=== PATIENT | female | born 1985 | race Asian ===

== ENCOUNTER 2017-02-13 17:53 | Inpatient (IN) | payer OTHER ==
[2017-02-13] MEDS ORDERED: DINOPROSTONE 10 MG VAGINAL INSERT.SR PV PRN (17:54)
[2017-02-13] MEDS ORDERED: OXYTOCIN/NORMAL SALINE 1,000 ML IV PRN (17:54)
[2017-02-13] MEDS ORDERED: RINGERS SOLUTION,LACTATED 1,000 ML IV ONE (17:54)
[2017-02-13] MEDS ORDERED: PENICILLIN G POTASSIUM 5,000,000 UNIT in DEXTROSE 5%-WATER 100 ML IV ONE (17:54)
[2017-02-13 18:48] LABS: ABSOLUTE BASOPHILS # (AUTO) 0.1 10^3/uL (0.0-0.2); ABSOLUTE EOSINOPHILS # (AUTO) 0.1 10^3/uL (0.0-0.6); ABSOLUTE MONOCYTES (AUTO) 0.6 10^3/uL (0.1-1.4); ABSOLUTE NEUT (AUTO) 4.8 10^3/uL (1.7-8.2); BASOPHILS % (AUTO) 0.8 % (0-2); EOSINOPHILS % (AUTO) 1.6 % (0-6); HEMATOCRIT 37.6 % (36.0-47.0); HEMOGLOBIN 12.8 g/dL (12.0-15.5); HGB HCT DIFFERENCE 0.8; LYMPHOCYTES % (AUTO) 26.1 % (13-45); MEAN CORPUSCULAR HEMOGLOBIN 29.4 pg (27.0-33.4); MEAN CORPUSCULAR VOLUME 86 fl (80-97); MONOCYTES % (AUTO) 7.5 % (3-13); RED BLOOD COUNT 4.35 10^6/uL (3.72-5.28); RED CELL DISTRIBUTION WIDTH 14.4 % (11.5-14.0); WHITE BLOOD COUNT 7.5 10^3/uL (4.0-10.5)
[2017-02-13] MEDS ORDERED: DINOPROSTONE 10 MG VAGINAL INSERT.SR ONE (19:21)
[2017-02-13] MEDS ORDERED: ACETAMINOPHEN 325 MG TABLET PO PRN (19:58)
--- NOTE | 2017-02-13 20:01 | L&D Flow Sheet ---
LD Flowsheet Datetime Report Generated by CPN: 02/13/2017 20:00 Datetime: 02/13/2017 19:38 Medications Cervical Ripening Agents: Cervidil (Samantha Lattibeaudeir, RN) Datetime: 02/13/2017 19:30 Uterine Activity Monitor Mode: External (Samantha Lattibeaudeir, RN) Frequency (min): x3 (Samantha Lattibeaudeir, RN) Quality: Mild (Samantha Lattibeaudeir, RN) Duration (sec): 90-130 (Samantha Lattibeaudeir, RN) Resting Tone (Palpate): Relaxed (Samantha Lattibeaudeir, RN) Contraction Comments: Pt denies feeling contractions. (Samantha Lattibeaudeir, RN) Assessment A Monitor Mode: External US (Samantha Lattibeaudeir, RN) FHR Baseline Rate : 130 (Samantha Lattibeaudeir, RN) Variability: Moderate 6-25 bpm (Samantha Lattibeaudeir, RN) Accelerations: 15X15 (Samantha Lattibeaudeir, RN) Datetime: 02/13/2017 19:26 I/O Interventions: Up to BR (Samantha Lattibeaudeir, RN) Datetime: 02/13/2017 19:23 Communication Communication Comments: Received report from B. Baidy, RN. Care assumed. (Samantha Lattibeaudeir, RN) Communication Communication Comments: handoff report given to S Lattibeaudeir RN (Josiane Baidy, RN) Datetime: 02/13/2017 19:03 Vital Signs NBP Sys/Trudy/Mean (mmHg): 123 (QS system process) : 77 (QS system process) : 97 (QS system process) Pulse: 72 (QS system process) Datetime: 02/13/2017 19:00 Uterine Activity Monitor Mode: External; Palpation (Josiane Naima, RN) Frequency (min): irregular (Josiane Baidy, RN) Quality: Mild (Josiane Baidy, RN) Duration Criteria: Less than Two 120 Second Contractions (Josiane Baidy, RN) Pattern: Normal: <= 5 Contractions in 10 Minutes (Josiane Baidy, RN) Resting Tone (Palpate): Relaxed (Josiane Baidy, RN) Assessment A Monitor Mode: External US (Josiane Baidy, RN) FHR Baseline Rate : 130 (Josiane Baidy, RN) Variability: Moderate 6-25 bpm (Josiane Baidy, RN) Accelerations: 15X15 (Josiane Baidy, RN) Decelerations: None (Josiane Baidy, RN) Procedures: Consents Signed (Josiane Annady, RN) Datetime: 02/13/2017 18:49 Patient Care IV/Blood Work: IV Started; IV Bolus Started (Josiane Naima, RN) Patient Care Comments: 18g in left forearm (Josiane Annady, RN) Datetime: 02/13/2017 18:29 Procedures: Labs Drawn (Josiane Annady, RN) Datetime: 02/13/2017 18:26 Pain Pain Scale: 0 (Josiane Mcnamara RN) Pain Presence: None/Denies (Josiane Mcnamara RN) Pain Type: N/A (Josiane Mcnamara RN) Vaginal Exam Dilatation (cm): 0.0 (Josiane Mcnamara RN) Effacement (%): 50 (Josiane Mcnamara RN) Station: -1 (Josiane Mcnamara RN) Exam by: Dr Rose (Josiane Mcnamara RN) Membrane Status: Intact (Josiane Mcnamara RN) Vaginal Bleeding: None (Josiane Mcnamara, RN) Maternal Assessment Level of Consciousness: Fully Conscious (Josiane Mcnamara, RN) DTR's/Clonus: DTRs 2+; No Clonus (Josiane Mcnamara, RN) Headache: Denies (Josiane Mcnamara, RN) Breath Sounds, Left: Clear and Equal (Josiane Mcnamara, RN) Breath Sounds, Right: Clear and Equal (Josiane Baidiamante, RN) Nausea/Vomiting: Denies (Josiane Mcnamara, RN) RUQ Epigastric Pain: Denies (Josiane Mcnamara, RN) Patient Position/Activity: Semi-Fowlers (Josiane Mcnamara, RN) Teaching Instructional Method: Verbal; Patient Instructed; Verbalized Understanding (Josiane Mcnamara RN) Plan of Care: Plan of Care Discussed; Induction (Josiane Mcnamara RN) Unit Routine: [place] to Room; Call [place]; Bed; Monitoring (Josiane Mcnamara RN) Labor/Induction: Cervical Ripening; Induction (Josiane Mcnamara RN)
[2017-02-13] MEDS ORDERED: PENICILLIN G POTASSIUM 2,500,000 UNIT in DEXTROSE 5%-WATER 50 ML IV SCH (21:56)
[2017-02-13] MEDS ORDERED: ZOLPIDEM TARTRATE 5 MG TABLET PO SCH (22:00)
[2017-02-14] MEDS ORDERED: ZOLPIDEM TARTRATE 5 MG TABLET ONE (00:01)
[2017-02-14] MEDS: RINGERS SOLUTION,LACTATED 1,000 ML IV PRN ×3 (06:51→21:10)
--- NOTE | 2017-02-14 08:01 | L&D Flow Sheet ---
LD Flowsheet Datetime Report Generated by CPN: 02/14/2017 08:00 Datetime: 02/14/2017 07:03 NBP Sys/Trudy/Mean (mmHg): 112 (QS system process) : 66 (QS system process) : 85 (QS system process) Pulse: 52 (QS system process) Datetime: 02/14/2017 07:00 Monitor Mode: External (Samantha Lattibeaudeir, RN) Frequency (min): 2-3 (Samantha Lattibeaudeir, RN) Quality: Mild/Moderate (Samantha Lattibeaudeir, RN) Duration (sec): 60-150 (Samantha Lattibeaudeir, RN) Monitor Mode: External US (Samantha Lattibeaudeir, RN) FHR Baseline Rate : 120 (Samantha Lattibeaudeir, RN) Variability: Moderate 6-25 bpm (Samantha Lattibeaudeir, RN) Accelerations: 15X15 (Samantha Lattibeaudeir, RN) Datetime: 02/14/2017 06:49 IV/Blood Work: New IV Bag Hung; IV Bag Number @ 2 (Samantha Lattibeaudeir, RN) Datetime: 02/14/2017 06:30 Monitor Mode: External (Samantah Lattibeaudeir, RN) Frequency (min): 1.5-2.5 (Samantha Lattibeaudeir, RN) Quality: Mild/Moderate (Samantha Lattibeaudeir, RN) Duration (sec): 70-130 (Samantha Lattibeaudeir, RN) Resting Tone (Palpate): Relaxed (Samantha Lattibeaudeir, RN) Monitor Mode: External US (Samantha Lattibeaudeir, RN) FHR Baseline Rate : 120 (Samantha Lattibeaudeir, RN) Variability: Minimal - Undetectable to <=5 bpm (Samantha Lattibeaudeir, RN) Accelerations: 10X10 (Samantha Lattibeaudeir, RN) Datetime: 02/14/2017 06:11 NBP Sys/Trudy/Mean (mmHg): 119 (QS system process) : 81 (QS system process) : 95 (QS system process) Pulse: 53 (QS system process) Datetime: 02/14/2017 06:06 I/O Interventions: Up to BR (Samantha Lattibeaudeir, RN) Datetime: 02/14/2017 06:03 NBP Sys/Trudy/Mean (mmHg): 117 (QS system process) : 78 (QS system process) : 92 (QS system process) Pulse: 49 (QS system process) Datetime: 02/14/2017 06:00 Monitor Mode: External (Samantha Lattibeaudeir, RN) Frequency (min): 2-4 (Samantha Lattibeaudeir, RN) Quality: Mild/Moderate (Samantha Lattibeaudeir, RN) Duration (sec): 80-110 (Samantha Lattibeaudeir, RN) Resting Tone (Palpate): Relaxed (Samantha Lattibeaudeir, RN) Monitor Mode: External US (Samantha Lattibeaudeir, RN) FHR Baseline Rate : 120 (Samantha Lattibeaudeir, RN) Variability: Moderate 6-25 bpm (Samantha Lattibeaudeir, RN) Accelerations: 15X15 (Samantha Lattibeaudeir, RN) Decelerations: Early (Samantha Lattibeaudeir, RN) Datetime: 02/14/2017 05:30 Monitor Mode: External (Samantha Lattibeaudeir, RN) Frequency (min): 1.5-6.5 (Samantha Lattibeaudeir, RN) Quality: Mild/Moderate (Samantha Lattibeaudeir, RN) Duration (sec): 60-110 (Samantha Lattibeaudeir, RN) Resting Tone (Palpate): Relaxed (Samantha Lattibeaudeir, RN) Monitor Mode: External US (Samantha Lattibeaudeir, RN) FHR Baseline Rate : 120 (Samantha Lattibeaudeir, RN) Variability: Minimal - Undetectable to <=5 bpm (Samantha Lattibeaudeir, RN) Accelerations: 15X15 (Samantha Lattibeaudeir, RN) Datetime: 02/14/2017 05:04 NBP Sys/Trudy/Mean (mmHg): 119 (QS system process) : 73 (QS system process) : 90 (QS system process) Pulse: 50 (QS system process) Datetime: 02/14/2017 05:00 Monitor Mode: External (Samantha Lattibeaudeir, RN) Frequency (min): 2-5 (Samantha Lattibeaudeir, RN) Quality: Mild/Moderate (Samantha Lattibeaudeir, RN) Duration (sec): 80-130 (Samantha Lattibeaudeir, RN) Resting Tone (Palpate): Relaxed (Samantha Lattibeaudeir, RN) Monitor Mode: External US (Samantha Lattibeaudeir, RN) FHR Baseline Rate : 120 (Samantha Lattibeaudeir, RN) Variability: Moderate 6-25 bpm (Samantha Lattibeaudeir, RN) Accelerations: 15X15 (Samantha Lattibeaudeir, RN) Datetime: 02/14/2017 04:30 Monitor Mode: External (Samantha Lattibeaudeir, RN) Frequency (min): 1.5-5 (Samantha Lattibeaudeir, RN) Quality: Mild/Moderate (Samantha Lattibeaudeir, RN) Duration (sec): 60-160 (Samantha Lattibeaudeir, RN) Resting Tone (Palpate): Relaxed (Samantha Lattibeaudeir, RN) Monitor Mode: External US (Samantha Lattibeaudeir, RN) FHR Baseline Rate : 120 (Samantha Lattibeaudeir, RN) Variability: Minimal - Undetectable to <=5 bpm (Samantha Lattibeaudeir, RN) Accelerations: 15X15 (Samantha Lattibeaudeir, RN) Datetime: 02/14/2017 04:11 NBP Sys/Trudy/Mean (mmHg): 118 (QS system process) : 77 (QS system process) : 93 (QS system process) Pulse: 55 (QS system process) Datetime: 02/14/2017 04:02 I/O Interventions: Up to BR (Samantha Lattibeaudeir, RN) Datetime: 02/14/2017 04:00 Monitor Mode: External (Samantha Lattibeaudeir, RN) Frequency (min): 1-6.5 (Samantha Lattibeaudeir, RN) Quality: Mild/Moderate (Samantha Lattibeaudeir, RN) Duration (sec): 80-140 (Samantha Lattibeaudeir, RN) Resting Tone (Palpate): Relaxed (Samantha Lattibeaudeir, RN) Monitor Mode: External US (Samantha Lattibeaudeir, RN) FHR Baseline Rate : 125 (Samantha Lattibeaudeir, RN) Variability: Moderate 6-25 bpm (Samantha Lattibeaudeir, RN) Accelerations: 15X15 (Samantha Lattibeaudeir, RN) Decelerations: None (Samantha Lattibeaudeir, RN) Datetime: 02/14/2017 03:30 Monitor Mode: External (Samantha Lattibeaudeir, RN) Frequency (min): 1.5-5 (Samantha Lattibeaudeir, RN) Quality: Moderate (Samantha Lattibeaudeir, RN) Duration (sec): 60-160 (Samantha Lattibeaudeir, RN) Resting Tone (Palpate): Relaxed (Samantha Lattibeaudeir, RN) Monitor Mode: External US (Samantha Lattibeaudeir, RN) FHR Baseline Rate : 125 (Samantha Lattibeaudeir, RN) Variability: Moderate 6-25 bpm (Samantha Lattibeaudeir, RN) Accelerations: 15X15 (Samantha Lattibeaudeir, RN) Datetime: 02/14/2017 03:03 NBP Sys/Trudy/Mean (mmHg): 112 (QS system process) : 63 (QS system process) : 82 (QS system process) Pulse: 55 (QS system process) Datetime: 02/14/2017 03:00 Monitor Mode: External (Samantha Lattibeaudeir, RN) Frequency (min): 2-5.5 (Samantha Lattibeaudeir, RN) Quality: Mild/Moderate (Samantha Lattibeaudeir, RN) Duration (sec): 60-180 (Samantha Lattibeaudeir, RN) Resting Tone (Palpate): Relaxed (Samantha Lattibeaudeir, RN) Monitor Mode: External US (Samantha Lattibeaudeir, RN) FHR Baseline Rate : 125 (Samantha Lattibeaudeir, RN) Variability: Moderate 6-25 bpm (Samantha Lattibeaudeir, RN) Accelerations: 15X15 (Samantha Lattibeaudeir, RN) Datetime: 02/14/2017 02:30 Monitor Mode: External (Samantha Lattibeaudeir, RN) Frequency (min): 2.5-4 (Samantha Lattibeaudeir, RN) Quality: Mild/Moderate (Samantha Lattibeaudeir, RN) Duration (sec): 80-140 (Samantha Lattibeaudeir, RN) Resting Tone (Palpate): Relaxed (Samantha Lattibeaudeir, RN) Monitor Mode: External US (Samantha Lattibeaudeir, RN) FHR Baseline Rate : 135 (Samantha Lattibeaudeir, RN) Variability: Moderate 6-25 bpm (Samantha Lattibeaudeir, RN) Accelerations: Prolonged (Samantha Lattibeaudeir, RN) Datetime: 02/14/2017 02:04 NBP Sys/Trudy/Mean (mmHg): 110 (QS system process) : 58 (QS system process) : 78 (QS system process) Pulse: 53 (QS system process) Datetime: 02/14/2017 02:00 Monitor Mode: External (Samantha Lattibeaudeir, RN) Frequency (min): 2-3.5 (Samantha Lattibeaudeir, RN) Quality: Mild/Moderate (Samantha Lattibeaudeir, RN) Duration (sec): 80-120 (Samantha Lattibeaudeir, RN) Resting Tone (Palpate): Relaxed (Samantha Lattibeaudeir, RN) Monitor Mode: External US (Samantha Lattibeaudeir, RN) FHR Baseline Rate : 125 (Samantha Lattibeaudeir, RN) Variability: Moderate 6-25 bpm (Samantha Lattibeaudeir, RN) Accelerations: 15X15 (Samantha Lattibeaudeir, RN) Datetime: 02/14/2017 01:34 I/O Interventions: Up to BR (Samantha Lattibeaudeir, RN) Datetime: 02/14/2017 01:30 Monitor Mode: External (Samantha Lattibeaudeir, RN) Frequency (min): 2.5-4 (Samantha Lattibeaudeir, RN) Quality: Mild (Samantha Lattibeaudeir, RN) Duration (sec): 70-220 (Samantha Lattibeaudeir, RN) Resting Tone (Palpate): Relaxed (Samantha Lattibeaudeir, RN) Monitor Mode: External US (Samantha Lattibeaudeir, RN) FHR Baseline Rate : 125 (Samantha Lattibeaudeir, RN) Variability: Moderate 6-25 bpm (Samantha Lattibeaudeir, RN) Accelerations: 15X15 (Samantha Lattibeaudeir, RN) Datetime: 02/14/2017 01:17 Monitor Interventions for UA: [place] Adjusted (Samantha Lattibeaudeir, RN) Patient Position/Activity: Left Lateral (Samantha Lattibeaudeir, RN) Datetime: 02/14/2017 01:03 NBP Sys/Trudy/Mean (mmHg): 108 (QS system process) : 62 (QS system process) : 81 (QS system process) Pulse: 59 (QS system process) Datetime: 02/14/2017 01:00 Monitor Mode: External; Palpation (Samantha Lattibeaudeir, RN) Quality: Mild (Samantha Lattibeaudeir, RN) Resting Tone (Palpate): Relaxed (Samantha Lattibeaudeir, RN) Contraction Comments: unable to determine contraction pattern. (Samantha Lattibeaudeir, RN) Monitor Mode: External US (Samantha Lattibeaudeir, RN) FHR Baseline Rate : 135 (Samantha Lattibeaudeir, RN) Variability: Moderate 6-25 bpm (Samantha Lattibeaudeir, RN) Accelerations: 15X15 (Samantha Lattibeaudeir, RN) Datetime: 02/14/2017 00:30 Monitor Mode: External (Samantha Lattibeaudeir, RN) Frequency (min): 2.5-3.5 (Samantha Lattibeaudeir, RN) Quality: Mild (Samantha Lattibeaudeir, RN) Duration (sec): 70-120 (Samantha Lattibeaudeir, RN) Resting Tone (Palpate): Relaxed (Samantha Lattibeaudeir, RN) Monitor Mode: External US (Samantha Lattibeaudeir, RN) FHR Baseline Rate : 135 (Samantha Lattibeaudeir, RN) Variability: Moderate 6-25 bpm (Samantha Lattibeaudeir, RN) Accelerations: 15X15 (Samantha Lattibeaudeir, RN) Datetime: 02/14/2017 00:01 Analgesics/Sedatives: Ambien (mg) @ 10 (Samantha Lattibeaudeir, RN) Datetime: 02/14/2017 00:00 Monitor Mode: External (Samantha Lattibeaudeir, RN) Frequency (min): 3-4 (Samantha Lattibeaudeir, RN) Quality: Mild (Samantha Lattibeaudeir, RN) Duration (sec): 80-110 (Samantha Lattibeaudeir, RN) Resting Tone (Palpate): Relaxed (Samantha Lattibeaudeir, RN) Monitor Mode: External US (Samantha Lattibeaudeir, RN) FHR Baseline Rate : 140 (Samantha Lattibeaudeir, RN) Variability: Moderate 6-25 bpm (Samantha Lattibeaudeir, RN) Accelerations: 15X15 (Samantha Lattibeaudeir, RN) Datetime: 02/13/2017 23:52 I/O Interventions: Up to BR (Samantha Lattibeaudeir, RN) Datetime: 02/13/2017 23:33 NBP Sys/Trudy/Mean (mmHg): 123 (QS system process) : 77 (QS system process) : 95 (QS system process) Pulse: 59 (QS system process) Datetime: 02/13/2017 23:30 Monitor Mode: External (Samantha Lattibeaudeir, RN) Frequency (min): 4-12 (Samantha Lattibeaudeir, RN) Quality: Mild (Samantha Lattibeaudeir, RN) Duration (sec): 80-130 (Samantha Lattibeaudeir, RN) Resting Tone (Palpate): Relaxed (Samantha Lattibeaudeir, RN) Monitor Mode: External US (Samantha Lattibeaudeir, RN) FHR Baseline Rate : 140 (Samantha Lattibeaudeir, RN) Variability: Moderate 6-25 bpm (Samantha Lattibeaudeir, RN) Accelerations: Prolonged (Samantha Lattibeaudeir, RN) Datetime: 02/13/2017 23:03 NBP Sys/Trudy/Mean (mmHg): 120 (QS system process) : 77 (QS system process) : 94 (QS system process) Pulse: 60 (QS system process) Datetime: 02/13/2017 23:00 Monitor Mode: External (Samantha Lattibeaudeir, RN) Frequency (min): 2-4 (Samantha Lattibeaudeir, RN) Quality: Mild (Samantha Lattibeaudeir, RN) Duration (sec): 70-110 (Samantha Lattibeaudeir, RN) Resting Tone (Palpate): Relaxed (Samantha Lattibeaudeir, RN) Monitor Mode: External US (Samantha Lattibeaudeir, RN) FHR Baseline Rate : 130 (Samantha Lattibeaudeir, RN) Variability: Moderate 6-25 bpm (Samantha Lattibeaudeir, RN) Accelerations: 15X15 (Samantha Lattibeaudeir, RN) Datetime: 02/13/2017 22:33 NBP Sys/Trudy/Mean (mmHg): 114 (QS system process) : 77 (QS system process) : 92 (QS system process) Pulse: 67 (QS system process) Datetime: 02/13/2017 22:30 Monitor Mode: External (Samantha Lattibeaudeir, RN) Frequency (min): 2-3.5 (Samantha Lattibeaudeir, RN) Quality: Mild (Samantha Lattibeaudeir, RN) Duration (sec): 60-90 (Samantha Lattibeaudeir, RN) Resting Tone (Palpate): Relaxed (Samantha Lattibeaudeir, RN) Monitor Mode: External US (Samantha Lattibeaudeir, RN) FHR Baseline Rate : 130 (Samantha Lattibeaudeir, RN) Variability: Moderate 6-25 bpm (Samantha Lattibeaudeir, RN) Accelerations: 15X15 (Samantha Lattibeaudeir, RN) Datetime: 02/13/2017 22:04 I/O Interventions: Up to BR (Samantha Lattibeaudeir, RN) Datetime: 02/13/2017 22:03 NBP Sys/Trudy/Mean (mmHg): 118 (QS system process) : 75 (QS system process) : 93 (QS system process) Pulse: 61 (QS system process) Datetime: 02/13/2017 22:00 Monitor Mode: External (Samantha Lattibeaudeir, RN) Frequency (min): 4-8 (Samantha Lattibeaudeir, RN) Quality: Mild (Samantha Lattibeaudeir, RN) Duration (sec): 90-140 (Samantha Lattibeaudeir, RN) Resting Tone (Palpate): Relaxed (Samantha Lattibeaudeir, RN) Monitor Mode: External US (Samantha Lattibeaudeir, RN) FHR Baseline Rate : 125 (Samantha Lattibeaudeir, RN) Variability: Minimal - Undetectable to <=5 bpm (Samantha Lattibeaudeir, RN) Accelerations: 15X15 (Samantha Lattibeaudeir, RN) Datetime: 02/13/2017 21:34 NBP Sys/Trudy/Mean (mmHg): 119 (QS system process) : 76 (QS system process) : 92 (QS system process) Pulse: 63 (QS system process) Datetime: 02/13/2017 21:30 Monitor Mode: External (Samantha Lattibeaudeir, RN) Frequency (min): 2.5-8.5 (Samantha Lattibeaudeir, RN) Quality: Mild (Samantha Lattibeaudeir, RN) Duration (sec): 90-110 (Samantha Lattibeaudeir, RN) Resting Tone (Palpate): Relaxed (Samantha Lattibeaudeir, RN) Monitor Mode: External US (Samantha Lattibeaudeir, RN) FHR Baseline Rate : 125 (Samantha Lattibeaudeir, RN) Variability: Moderate 6-25 bpm (Samantha Lattibeaudeir, RN) Accelerations: 15X15 (Samantha Lattibeaudeir, RN) Decelerations: None (Samantha Lattibeaudeir, RN) Datetime: 02/13/2017 21:03 NBP Sys/Trudy/Mean (mmHg): 116 (QS system process) : 77 (QS system process) : 91 (QS system process) Pulse: 65 (QS system process) Datetime: 02/13/2017 21:00 Monitor Mode: External (Samantha Lattibeaudeir, RN) Frequency (min): 5-13 (Samantha Lattibeaudeir, RN) Quality: Mild (Samantha Lattibeaudeir, RN) Duration (sec): 60-130 (Samantha Lattibeaudeir, RN) Resting Tone (Palpate): Relaxed (Samantha Lattibeaudeir, RN) Monitor Mode: External US (Samantha Lattibeaudeir, RN) FHR Baseline Rate : 125 (Samantha Lattibeaudeir, RN) Variability: Moderate 6-25 bpm (Samantha Lattibeaudeir, RN) Accelerations: 15X15 (Samantha Lattibeaudeir, RN) Datetime: 02/13/2017 20:34 NBP Sys/Trudy/Mean (mmHg): 124 (QS system process) : 70 (QS system process) : 92 (QS system process) Pulse: 56 (QS system process) Datetime: 02/13/2017 20:30 Monitor Mode: External (Samantha Lattibeaudeir, RN) Frequency (min): 1-6.5 (Samantha Lattibeaudeir, RN) Quality: Mild (Samantha Lattibeaudeir, RN) Duration (sec): 60-150 (Samantha Lattibeaudeir, RN) Resting Tone (Palpate): Relaxed (Samantha Lattibeaudeir, RN) Monitor Mode: External US (Samantha Lattibeaudeir, RN) FHR Baseline Rate : 130 (Samantha Lattibeaudeir, RN) Variability: Moderate 6-25 bpm (Samantha Lattibeaudeir, RN) Accelerations: 15X15 (Samantha Lattibeaudeir, RN) Decelerations: None (Samantha Lattibeaudeir, RN) Datetime: 02/13/2017 20:03 NBP Sys/Trudy/Mean (mmHg): 117 (QS system process) : 70 (QS system process) : 89 (QS system process) Pulse: 67 (QS system process) Datetime: 02/13/2017 20:00 Monitor Mode: External (Samantha Dong RN) Frequency (min): x3 (Samantha Dong RN) Quality: Mild (Samantha Dong RN) Duration (sec): 60-120 (Samantha Dong RN) Resting Tone (Palpate): Relaxed (Samantha Dong RN) Monitor Mode: External US (Samantha Dong RN) FHR Baseline Rate : 125 (Samantha Dong RN) Variability: Moderate 6-25 bpm (Samantha Dong RN) Accelerations: 15X15 (Samantha Dong RN) Comments: x1 decel after returning from bathroom. (Samantha Dong RN)
[2017-02-14] MEDS ORDERED: MISOPROSTOL 0.1 MG TABLET ONE (10:46)
[2017-02-14] MEDS ORDERED: OXYTOCIN/NORMAL SALINE 20 UNIT/1,000 ML RTUINJ ONE ×2 (14:54→22:32)
[2017-02-14] MEDS ORDERED: PENICILLIN G-K 5 MILLION UNIT VIAL ONE ×2 (15:23→18:56)
[2017-02-14] MEDS ORDERED: BENZOIN/ALOE VERA/STORAX/TOLU TINCTURE 60 ML TP PRN (19:36)
[2017-02-14] MEDS ORDERED: EPHEDRINE SULFATE INJ 50 MG/1 ML AMPULE IV PRN (19:36)
[2017-02-14] MEDS ORDERED: FENTANYL/BUPIVACAINE/NS/PF 100 ML EPI PRN (19:36)
[2017-02-14] MEDS ORDERED: BUPIVACAINE HCL 0.25 % INJ/PF (2.5 MG/1 ML) 30 ML VIAL INFIL ONE (19:36)
[2017-02-14] MEDS ORDERED: FENTANYL CITRATE INJ/PF 100 MCG/2 ML AMPUL ONE (19:37)
[2017-02-14] MEDS ORDERED: PHENYLEPHRINE HCL INJ/PF 10 MG/1 ML SDV ONE (19:37)
[2017-02-14] MEDS ORDERED: FENTANYL/BUPIVACAINE/NS/PF 200 MCG/100 ML RTUINJ EPI ONE (19:37)
[2017-02-14] MEDS ORDERED: BUPIVACAINE HCL 0.25 % INJ/PF (2.5 MG/1 ML) 30 ML VIAL ONE (19:37)
[2017-02-14] MEDS ORDERED: EPHEDRINE SULFATE INJ 50 MG/1 ML AMPULE ONE ×2 (19:37→19:38)
--- NOTE | 2017-02-14 20:01 | L&D Flow Sheet ---
LD Flowsheet Datetime Report Generated by CPN: 02/14/2017 20:00 Datetime: 02/14/2017 19:59 NBP Sys/Trudy/Mean (mmHg): 130 (QS system process) : 86 (QS system process) : 103 (QS system process) Pulse: 66 (QS system process) LaborFlag: Labor (QS system process) Datetime: 02/14/2017 19:57 NBP Sys/Trudy/Mean (mmHg): 145 (QS system process) : 84 (QS system process) : 108 (QS system process) Pulse: 66 (QS system process) LaborFlag: Labor (QS system process) Datetime: 02/14/2017 19:56 NBP Sys/Trudy/Mean (mmHg): 149 (QS system process) : 85 (QS system process) : 109 (QS system process) Pulse: 53 (QS system process) LaborFlag: Labor (QS system process) Datetime: 02/14/2017 19:55 NBP Sys/Trudy/Mean (mmHg): 148 (QS system process) : 78 (QS system process) : 104 (QS system process) Pulse: 64 (QS system process) LaborFlag: Labor (QS system process) Datetime: 02/14/2017 19:49 NBP Sys/Trudy/Mean (mmHg): 141 (QS system process) : 78 (QS system process) : 103 (QS system process) Pulse: 62 (QS system process) LaborFlag: Labor (QS system process) Datetime: 02/14/2017 19:30 Pain Scale: 3 (Danial Mendez RN) Pain Presence: Intermittent (Danial Mendez RN) Pain Type: Contraction (Danial Mendez RN) Pain Location: Abdomen; Back (Danial Mendez RN) Pain Goal: 1 (Danial Mendez RN) Pain Coping: Talking Through Contractions; Breathing Through Contractions (Danial Mendez RN) Level of Consciousness: Fully Conscious (Danial Mendez RN) Headache: Denies (Danial Mendez RN) Nausea/Vomiting: Denies (Danial Mendez RN) RUQ Epigastric Pain: Denies (Danial Mendez RN) Pitocin (milliunit): Pitocin Remains (milliunits) @ (Annotations: 14) (Danial Mendez RN) LaborFlag: Labor (QS system process) Datetime: 02/14/2017 19:22 Communication Comments: Report to Niru Lorenzomaribell FINE, Dasia Anton RNC out. (Brittany Walton RNC) Datetime: 02/14/2017 19:15 Monitor Mode: External; Palpation (FANNIE Hernandez) Frequency (min): 3.5-6 (Brittany Walton RNC) Quality: Mild/Moderate (Brittany Walton RNC) Duration (sec): 60-120 (Brittany Walton RNC) Duration Criteria: Less than Two 120 Second Contractions (Brittany Walton RNC) Pattern: Normal: <= 5 Contractions in 10 Minutes (Brittany Walton RNC) Resting Tone (Palpate): Relaxed (Brittany Walton RNC) Monitor Mode: External US (FANNIE Hernandez) FHR Baseline Rate : 135 (Brittany Walton RNC) Variability: Moderate 6-25 bpm (Brittany Walton RNC) Accelerations: 15X15 (Brittany Walton RNC) Decelerations: None (Brittany Walton RNC) Pitocin (milliunit): Pitocin Remains (milliunits) @ 14 (Brittany Walton RNC) Antibiotics: Penicillin IV (Units) @ 2.5 Million (Brittany Walton RNC) Datetime: 02/14/2017 19:00 Monitor Mode: External; Palpation (Brittany Anton, RNC) Frequency (min): 3-6 (Brittany Anton, RNC) Quality: Moderate (Brittany Anton, RNC) Duration (sec): 60-120 (Brittany Anton, RNC) Duration Criteria: Less than Two 120 Second Contractions (Brittany Anton, RNC) Pattern: Normal: <= 5 Contractions in 10 Minutes (Brittany Anton, RNC) Resting Tone (Palpate): Relaxed (Brittany Anton, RNC) Monitor Mode: External US (Brittany Anton, RNC) FHR Baseline Rate : 130 (Brittany Anton, RNC) Variability: Moderate 6-25 bpm (Brittany Anton, RNC) Accelerations: 15X15 (Brittany Anton, RNC) Decelerations: None (Brittany Anton, RNC) Pitocin (milliunit): Pitocin Remains (milliunits) @ 14 (Brittany Anton, RNC) Datetime: 02/14/2017 18:49 NBP Sys/Trudy/Mean (mmHg): 122 (QS system process) : 89 (QS system process) : 102 (QS system process) Pulse: 65 (QS system process) LaborFlag: Labor (QS system process) Datetime: 02/14/2017 18:45 Monitor Mode: External; Palpation (Brittany Anton, RNC) Frequency (min): 2-4 (Brittany Anton, RNC) Quality: Mild/Moderate (Brittany Anton, RNC) Duration (sec): 60-120 (Brittany Anton, RNC) Duration Criteria: Less than Two 120 Second Contractions (Brittany Anton, RNC) Pattern: Normal: <= 5 Contractions in 10 Minutes (Brittany Anton, RNC) Resting Tone (Palpate): Relaxed (Brittany Anton, RNC) Monitor Mode: External US (Brittany Anton, RNC) FHR Baseline Rate : 135 (Brittany Anton, RNC) Variability: Moderate 6-25 bpm (Brittany Anton, RNC) Accelerations: 15X15 (Brittany Anton, RNC) Decelerations: None (Brittany Anton, RNC) Datetime: 02/14/2017 18:30 Monitor Mode: External; Palpation (Brittany Anton, RNC) Frequency (min): 2.5-4 (Brittany Anton, RNC) Quality: Mild/Moderate (Brittany Anton, RNC) Duration (sec): 60-120 (Brittany Anton, RNC) Duration Criteria: Less than Two 120 Second Contractions (Brittany Anton, RNC) Pattern: Normal: <= 5 Contractions in 10 Minutes (Brittany Anton, RNC) Resting Tone (Palpate): Relaxed (Brittany Anton, RNC) Monitor Mode: External US (Brittany Anton, RNC) FHR Baseline Rate : 135 (Brittany Anton, RNC) Variability: Moderate 6-25 bpm (Brittany Anton, RNC) Accelerations: 15X15 (Brittany Anton, RNC) Decelerations: None (Brittany Anton, RNC) Datetime: 02/14/2017 18:18 NBP Sys/Trudy/Mean (mmHg): 122 (QS system process) : 83 (QS system process) : 99 (QS system process) Pulse: 54 (QS system process) LaborFlag: Labor (QS system process) Datetime: 02/14/2017 18:15 Monitor Mode: External; Palpation (Brittany Anton, RNC) Frequency (min): 2.5-4 (Brittany Anton, RNC) Quality: Mild/Moderate (Brittany Anton, RNC) Duration (sec): 60-120 (Brittany Anton, RNC) Duration Criteria: Less than Two 120 Second Contractions (Brittany Anton, RNC) Pattern: Normal: <= 5 Contractions in 10 Minutes (Brittany Anton, RNC) Resting Tone (Palpate): Relaxed (Brittany Anton, RNC) Monitor Mode: External US (Brittany Anton, RNC) FHR Baseline Rate : 135 (Brittany Anton, RNC) Variability: Moderate 6-25 bpm (Brittany Anton, RNC) Accelerations: None (Brittany Anton, RNC) Decelerations: None (Brittany Anton, RNC) Datetime: 02/14/2017 18:00 Monitor Mode: External; Palpation (Brittany Anton, RNC) Frequency (min): 2.5-4 (Brittany Anton, RNC) Quality: Mild/Moderate (Brittany Anton, RNC) Duration (sec): 60-120 (Brittany Anton, RNC) Duration Criteria: Less than Two 120 Second Contractions (Brittany Anton, RNC) Pattern: Normal: <= 5 Contractions in 10 Minutes (Brittany Anton, RNC) Resting Tone (Palpate): Relaxed (Brittany Anton, RNC) Monitor Mode: External US (Brittany Anton, RNC) FHR Baseline Rate : 135 (Brittany Anton, RNC) Variability: Moderate 6-25 bpm (Brittany Walton, RNC) Accelerations: None (Brittany Walton, RNC) Decelerations: None (Brittany Walton, RNC) Pitocin (milliunit): Pitocin Remains (milliunits) @ 14 (Brittany Walton, RNC) Datetime: 02/14/2017 17:50 NBP Sys/Trudy/Mean (mmHg): 114 (QS system process) : 78 (QS system process) : 91 (QS system process) Pulse: 55 (QS system process) LaborFlag: Labor (QS system process) Datetime: 02/14/2017 17:45 Monitor Mode: External; Palpation (Brittany Walton, RNC) Frequency (min): 3-5 (Brittany Walton, RNC) Quality: Mild/Moderate (Brittany Walton, RNC) Duration (sec): 60-120 (Brittany Walton, RNC) Duration Criteria: Less than Two 120 Second Contractions (Brittany Walton, RNC) Pattern: Normal: <= 5 Contractions in 10 Minutes (Brittany Anton, RNC) Resting Tone (Palpate): Relaxed (Brittany Anton, RNC) Monitor Mode: External US (Brittany Anton, RNC) FHR Baseline Rate : 130 (Brittany Anton, RNC) Variability: Moderate 6-25 bpm (Brittany Anton, RNC) Accelerations: 15X15 (Brittany Anton, RNC) Decelerations: None (Brittany Anton, RNC) Datetime: 02/14/2017 17:30 Monitor Mode: External; Palpation (Brittany Anton, RNC) Frequency (min): 2.5-5 (Brittany Anton, RNC) Quality: Mild/Moderate (Brittany Anton, RNC) Duration (sec): 60-120 (Brittany Anton, RNC) Duration Criteria: Less than Two 120 Second Contractions (Brittany Anton, RNC) Pattern: Normal: <= 5 Contractions in 10 Minutes (Brittany Anton, RNC) Resting Tone (Palpate): Relaxed (Brittany Anton, RNC) Monitor Mode: External US (Brittany Anton, RNC) FHR Baseline Rate : 130 (Brittany Anton, RNC) Variability: Moderate 6-25 bpm (Brittany Anton, RNC) Accelerations: None (Brittany Anton, RNC) Decelerations: None (Brittany Anton, RNC) Datetime: 02/14/2017 17:20 NBP Sys/Trudy/Mean (mmHg): 122 (QS system process) : 78 (QS system process) : 96 (QS system process) Pulse: 58 (QS system process) LaborFlag: Labor (QS system process) Datetime: 02/14/2017 17:15 Monitor Mode: External; Palpation (Brittany Walton, RNC) Frequency (min): 1.5-3 (Brittany Walton, RNC) Quality: Mild/Moderate (Brittany Walton, RNC) Duration (sec): 60-120 (Brittany Walton, RNC) Duration Criteria: Less than Two 120 Second Contractions (Brittany Walton, RNC) Pattern: Normal: <= 5 Contractions in 10 Minutes (Brittany Walton, RNC) Resting Tone (Palpate): Relaxed (Brittany Walton, RNC) Monitor Mode: External US (Brittany Walton, RNC) FHR Baseline Rate : 135 (Brittany Walton, RNC) Variability: Moderate 6-25 bpm (Brittany Walton, RNC) Accelerations: 15X15 (Brittany Walton, RNC) Decelerations: None (Brittany Walton, RNC) Pitocin (milliunit): Pitocin Increased to (milliunits) @ 14 (Brittnay Walton RNC) Datetime: 02/14/2017 17:00 Monitor Mode: External; Palpation (Brittany Anton, RNC) Frequency (min): 1.5-2 (Brittany Anton, RNC) Quality: Mild (Brittany Anton, RNC) Duration (sec): 50-90 (Brittany Anton, RNC) Duration Criteria: Less than Two 120 Second Contractions (Brittany Anton, RNC) Pattern: Normal: <= 5 Contractions in 10 Minutes (Brittany Anton, RNC) Resting Tone (Palpate): Relaxed (Brittany Anton, RNC) Monitor Mode: External US (Brittany Anton, RNC) FHR Baseline Rate : 135 (Brittany Anton, RNC) Variability: Moderate 6-25 bpm (Brittany Anton, RNC) Accelerations: 15X15 (Brittany Anton, RNC) Decelerations: None (Brittany Anton, RNC) Datetime: 02/14/2017 16:48 NBP Sys/Trudy/Mean (mmHg): 115 (QS system process) : 78 (QS system process) : 92 (QS system process) Pulse: 68 (QS system process) LaborFlag: Labor (QS system process) Datetime: 02/14/2017 16:45 Monitor Mode: External; Palpation (Brittany Anton, RNC) Frequency (min): 1.5-2 (Brittany Anton, RNC) Quality: Mild (Brittany Anton, RNC) Duration (sec): 60-90 (Brittany Anton, RNC) Duration Criteria: Less than Two 120 Second Contractions (Brittany Anton, RNC) Pattern: Normal: <= 5 Contractions in 10 Minutes (Brittany Anton, RNC) Resting Tone (Palpate): Relaxed (Brittany Anton, RNC) Monitor Mode: External US (Brittany Anton, RNC) FHR Baseline Rate : 140 (Brittany Anton, RNC) Variability: Moderate 6-25 bpm (Brittany Anton, RNC) Accelerations: 15X15 (Brittany Anton, RNC) Decelerations: None (Brittany Anton, RNC) Pitocin (milliunit): Pitocin Increased to (milliunits) @ 10 (Brittany Anton, RNC) Datetime: 02/14/2017 16:30 Monitor Mode: External; Palpation (Brittany Anton, RNC) Frequency (min): 3-5 (Brittany Anton, RNC) Quality: Mild (Brittany Anton, RNC) Duration (sec): 60-90 (Brittany Anton, RNC) Duration Criteria: Less than Two 120 Second Contractions (Brittany Anton, RNC) Pattern: Normal: <= 5 Contractions in 10 Minutes (Brittany Anton, RNC) Resting Tone (Palpate): Relaxed (Brittany Anton, RNC) Monitor Mode: External US (Brittany Anton, RNC) FHR Baseline Rate : 135 (Brittany Anton, RNC) Variability: Moderate 6-25 bpm (Brittany Anton, RNC) Accelerations: 15X15 (Brittany Anton, RNC) Decelerations: None (Brittany Anton, RNC) Datetime: 02/14/2017 16:19 NBP Sys/Trudy/Mean (mmHg): 115 (QS system process) : 76 (QS system process) : 90 (QS system process) Pulse: 63 (QS system process) LaborFlag: Labor (QS system process) Datetime: 02/14/2017 16:15 Monitor Mode: External; Palpation (Brittany Anton, RNC) Frequency (min): 3-5 (Brittany Anton, RNC) Quality: Mild (Brittany Anton, RNC) Duration (sec): 60-90 (Brittany Anton, RNC) Duration Criteria: Less than Two 120 Second Contractions (Brittany Anton, RNC) Pattern: Normal: <= 5 Contractions in 10 Minutes (Brittany Antno, RNC) Resting Tone (Palpate): Relaxed (Brittany Anton, RNC) Monitor Mode: External US (Brittany Anton, RNC) FHR Baseline Rate : 135 (Brittany Anton, RNC) Variability: Moderate 6-25 bpm (Brittany Anton, RNC) Accelerations: 15X15 (Brittany Anton, RNC) Pitocin (milliunit): Pitocin Increased to (milliunits) @ 8 (Brittany Anton, RNC) Datetime: 02/14/2017 16:00 Monitor Mode: External; Palpation (Brittany Anton, RNC) Frequency (min): 3-5 (Brittany Anton, RNC) Quality: Mild/Moderate (Brittany Anton, RNC) Duration (sec): 60-120 (Brittany Anton, RNC) Duration Criteria: Less than Two 120 Second Contractions (Brittany Anton, RNC) Pattern: Normal: <= 5 Contractions in 10 Minutes (Brittany Anton, RNC) Resting Tone (Palpate): Relaxed (Brittany Anton, RNC) Monitor Mode: External US (Brittany Walton, RNC) FHR Baseline Rate : 135 (Brittany Walton, RNC) Variability: Moderate 6-25 bpm (Brittany Anton, RNC) Accelerations: 15X15 (Brittany Anton, RNC) Decelerations: None (Brittany Walton, RNC) Datetime: 02/14/2017 15:48 NBP Sys/Trudy/Mean (mmHg): 120 (QS system process) : 77 (QS system process) : 93 (QS system process) Pulse: 66 (QS system process) LaborFlag: Labor (QS system process) Datetime: 02/14/2017 15:45 Monitor Mode: External; Palpation (Brittany Walton, RNC) Frequency (min): 3-5 (Brittany Anton, RNC) Quality: Mild/Moderate (Brittany Anton, RNC) Duration (sec): 60-120 (Brittany Anton, RNC) Duration Criteria: Less than Two 120 Second Contractions (Brittany Walton, RNC) Pattern: Normal: <= 5 Contractions in 10 Minutes (Brittanygreg Walton, RNC) Resting Tone (Palpate): Relaxed (Brittany Walton, RNC) Monitor Mode: External US (Brittany Walton, RNC) FHR Baseline Rate : 135 (Brittany Walton, RNC) Variability: Moderate 6-25 bpm (Brittany Walton, RNC) Accelerations: 15X15 (Brittanygreg Walton, RNC) Decelerations: None (Brittany Walton, RNC) Pitocin (milliunit): Pitocin Increased to (milliunits) @ 6 (Brittany Walton, RNC) Datetime: 02/14/2017 15:30 Monitor Mode: External; Palpation (Brittany Walton, RNC) Frequency (min): 4-6 (Brittany Walton, RNC) Quality: Mild/Moderate (Brittany Walton, RNC) Duration (sec): 60-120 (Brittany Walton, RNC) Duration Criteria: Less than Two 120 Second Contractions (Brittany Walton, RNC) Pattern: Normal: <= 5 Contractions in 10 Minutes (Brittany Walton, RNC) Resting Tone (Palpate): Relaxed (Brittany Walton, RNC) Monitor Mode: External US (Brittany Walton, RNC) FHR Baseline Rate : 130 (Brittany Walton, RNC) Variability: Moderate 6-25 bpm (Brittany Anton, RNC) Accelerations: 15X15 (Brittanygreg Walton, RNC) Decelerations: None (Brittany Walton, RNC) Pitocin (milliunit): Pitocin Increased to (milliunits) @ 4 (Brittany Walton, RNC) Datetime: 02/14/2017 15:18 NBP Sys/Trudy/Mean (mmHg): 114 (QS system process) : 81 (QS system process) : 95 (QS system process) Pulse: 62 (QS system process) LaborFlag: Labor (QS system process) Datetime: 02/14/2017 15:15 Pitocin (milliunit): Pitocin Started (milliunits) @ 2; Pitocin 20 Units in 1000ml NS (Brittany Walton [facility]) Antibiotics: Start Antibiotics; Penicillin IV (Units) @ 5 Million (Brittany Walton [facility]) Datetime: 02/14/2017 15:00 Monitor Mode: External (Brittany Anton, RNC) Frequency (min): 3-7 (Brittany Anton, RNC) Quality: Mild (Brittany Anton, RNC) Duration (sec): 60-90 (Brittany Anton, RNC) Duration Criteria: Less than Two 120 Second Contractions (Brittany Anton, RNC) Pattern: Normal: <= 5 Contractions in 10 Minutes (Brittany Anton, RNC) Resting Tone (Palpate): Relaxed (Brittany Anton, RNC) Monitor Mode: External US (Brittany Anton, RNC) FHR Baseline Rate : 135 (Brittany Anton, RNC) Variability: Moderate 6-25 bpm (Brittany Anton, RNC) Accelerations: 15X15 (Brittany Anton, RNC) Decelerations: None (Brittany Anton, RNC) Datetime: 02/14/2017 14:30 Monitor Mode: External; Palpation (Brittany Anton, RNC) Frequency (min): 4-7 (Brittany Anton, RNC) Quality: Mild/Moderate (Brittany Anton, RNC) Duration (sec): 60-120 (Brittany Anton, RNC) Duration Criteria: Less than Two 120 Second Contractions (Brittany Anton, RNC) Pattern: Normal: <= 5 Contractions in 10 Minutes (Brittany Anton, RNC) Resting Tone (Palpate): Relaxed (Brittany Anton, RNC) Monitor Mode: External US (Brittany Anton, RNC) FHR Baseline Rate : 125 (Brittany Anton, RNC) Variability: Moderate 6-25 bpm (Brittany Anton, RNC) Accelerations: 15X15 (Brittany Anton, RNC) Decelerations: None (Brittany Anton, RNC) Datetime: 02/14/2017 14:00 Monitor Mode: External; Palpation (Brittany Anton, RNC) Frequency (min): 3-5 (Brittany Anton, RNC) Quality: Mild (Brittany Anton, RNC) Duration (sec): 60-90 (Brittany Anton, RNC) Duration Criteria: Less than Two 120 Second Contractions (Brittany Anton, RNC) Pattern: Normal: <= 5 Contractions in 10 Minutes (Brittany Anton, RNC) Resting Tone (Palpate): Relaxed (Brittany Anton, RNC) Monitor Mode: External US (Brittany Anton, RNC) FHR Baseline Rate : 135 (Brittany Anton, RNC) Variability: Moderate 6-25 bpm (Brittany Anton, RNC) Accelerations: 15X15 (Brittany Anton, RNC) Decelerations: None (Brittany Anton, RNC) Datetime: 02/14/2017 13:30 Monitor Mode: External; Palpation (Brittany Anton, RNC) Frequency (min): 3-5 (Brittany Anton, RNC) Quality: Mild (Brittany Anton, RNC) Duration (sec): 60-120 (Brittany Anton, RNC) Duration Criteria: Less than Two 120 Second Contractions (Brittany Anton, RNC) Pattern: Normal: <= 5 Contractions in 10 Minutes (Brittany Anton, RNC) Resting Tone (Palpate): Relaxed (Brittany Anton, RNC) Monitor Mode: External US (Brittany Anton, RNC) FHR Baseline Rate : 125 (Brittany Anton, RNC) Variability: Moderate 6-25 bpm (Brittany Anton, RNC) Accelerations: 15X15 (Brittany Anton, RNC) Decelerations: None (Brittany Anton, RNC) Datetime: 02/14/2017 13:00 Monitor Mode: External; Palpation (Brittany Anton, RNC) Frequency (min): 3-5 (Brittany Anton, RNC) Quality: Mild (Brittany Anton, RNC) Duration (sec): 60-90 (Brittany Anton, RNC) Duration Criteria: Less than Two 120 Second Contractions (Brittany Anton, RNC) Pattern: Normal: <= 5 Contractions in 10 Minutes (Brittany Anton, RNC) Resting Tone (Palpate): Relaxed (Brittany Anton, RNC) Monitor Mode: External US (Brittany Anton, RNC) FHR Baseline Rate : 125 (Brittany Anton, RNC) Variability: Moderate 6-25 bpm (Brittany Anton, RNC) Accelerations: 15X15 (Brittany Anton, RNC) Decelerations: None (Brittany Anton, RNC) Datetime: 02/14/2017 12:30 Monitor Mode: External; Palpation (Brittany Anton, RNC) Frequency (min): 3-5 (Brittany Anton, RNC) Quality: Mild (Brittany Anton, RNC) Duration (sec): 60-90 (Brittany Anton, RNC) Duration Criteria: Less than Two 120 Second Contractions (Brittany Anton, RNC) Pattern: Normal: <= 5 Contractions in 10 Minutes (Brittany Anton, RNC) Resting Tone (Palpate): Relaxed (Brittany Anton, RNC) Monitor Mode: External US (Brittany Anton, RNC) FHR Baseline Rate : 120 (Brittany Anton, RNC) Variability: Moderate 6-25 bpm (Brittany Anton, RNC) Accelerations: 15X15 (Brittany Anton, RNC) Decelerations: None (Brittany Anton, RNC) Datetime: 02/14/2017 12:03 Patient Care Comments: Pt back to bed (Brittany Anton, RNC) Datetime: 02/14/2017 12:00 Monitor Mode: External; Palpation (Brittany Anton, RNC) Frequency (min): 5-6 (Brittany Anton, RNC) Quality: Mild (Brittany Anton, RNC) Duration (sec): 60-90 (Brittany Anton, RNC) Duration Criteria: Less than Two 120 Second Contractions (Brittany Anton, RNC) Pattern: Normal: <= 5 Contractions in 10 Minutes (Brittany Anton, RNC) Resting Tone (Palpate): Relaxed (Brittany Anton, RNC) Monitor Mode: External US (Brittany Anton, RNC) FHR Baseline Rate : 135 (Brittany Anton, RNC) Variability: Moderate 6-25 bpm (Brittany Anton, RNC) Accelerations: 15X15 (Brittany Anton, RNC) Decelerations: None (Brittany Anton, RNC) Datetime: 02/14/2017 11:59 I/O Interventions: Up to BR (Brittany Anton, RNC) Datetime: 02/14/2017 11:30 Monitor Mode: External; Palpation (Brittany Anton, RNC) Frequency (min): 3-5 (Brittany Anton, RNC) Quality: Mild/Moderate (Brittany Anton, RNC) Duration (sec): 60-120 (Brittany Anton, RNC) Duration Criteria: Less than Two 120 Second Contractions (Brittany Anton, RNC) Pattern: Normal: <= 5 Contractions in 10 Minutes (Brittany Anton, RNC) Resting Tone (Palpate): Relaxed (Brittany Anton, RNC) Monitor Mode: External US (Brittany Anton, RNC) FHR Baseline Rate : 135 (Brittany Anton, RNC) Variability: Moderate 6-25 bpm (Brittany Anton, RNC) Accelerations: 15X15 (Brittany Anton, RNC) Decelerations: None (Brittany Anton, RNC) Datetime: 02/14/2017 11:00 Monitor Mode: External; Palpation (Brittany Anton, RNC) Frequency (min): 3-5 (Brittany Walton, RNC) Quality: Mild (Brittany Walton, RNC) Duration (sec): 60-90 (Brittanygreg Walton, RNC) Duration Criteria: Less than Two 120 Second Contractions (Brittany Walton, RNC) Pattern: Normal: <= 5 Contractions in 10 Minutes (Brittany Walton, RNC) Resting Tone (Palpate): Relaxed (Brittany Walton, RNC) Monitor Mode: External US (Brittany Walton, RNC) FHR Baseline Rate : 130 (Brittany Anton, RNC) Variability: Moderate 6-25 bpm (Brittany Anton, RNC) Accelerations: 15X15 (Brittany Walton, RNC) Decelerations: None (Brittany Walton, RNC) Cervical Ripening Agents: Cytotec @ 25 mcg PV (Brittany Walton, RNC) Datetime: 02/14/2017 10:30 Monitor Mode: External; Palpation (Brittany Walton, RNC) Frequency (min): 3-6 (Brittany Walton, RNC) Quality: Mild (Brittany Walton, RNC) Duration (sec): 60-120 (Brittanygreg Walton, RNC) Duration Criteria: Less than Two 120 Second Contractions (Brittany Walton, RNC) Pattern: Normal: <= 5 Contractions in 10 Minutes (Brittanygreg Walton, RNC) Resting Tone (Palpate): Relaxed (Brittany Walton, RNC) Monitor Mode: External US (Brittany Walton, RNC) FHR Baseline Rate : 135 (Brittany Anton, RNC) Variability: Moderate 6-25 bpm (Brittanygreg Walton, RNC) Accelerations: 15X15 (Brittany Anton, RNC) Decelerations: None (Brittany Anton, RNC) Datetime: 02/14/2017 10:00 Monitor Mode: External; Palpation (Brittany Anton, RNC) Frequency (min): 3-7 (Brittany Anton, RNC) Quality: Mild (Brittany Anton, RNC) Duration (sec): 60-120 (Brittany Anton, RNC) Duration Criteria: Less than Two 120 Second Contractions (Brittany Anton, RNC) Pattern: Normal: <= 5 Contractions in 10 Minutes (Brittany Anton, RNC) Resting Tone (Palpate): Relaxed (Brittany Anton, RNC) Monitor Mode: External US (Brittany Anton, RNC) FHR Baseline Rate : 135 (Brittany Anton, RNC) Variability: Moderate 6-25 bpm (Brittany Anton, RNC) Accelerations: 15X15 (Brittany Anton, RNC) Decelerations: None (Brittany Anton, RNC) Datetime: 02/14/2017 09:30 Monitor Mode: External; Palpation (Brittany Anton, RNC) Frequency (min): 2-4 (Brittany Anton, RNC) Quality: Mild (Brittany Anton, RNC) Duration (sec): 60-90 (Brittany Anton, RNC) Duration Criteria: Less than Two 120 Second Contractions (Brittany Anton, RNC) Pattern: Normal: <= 5 Contractions in 10 Minutes (Brittany Anton, RNC) Resting Tone (Palpate): Relaxed (Brittany Anton, RNC) Monitor Mode: External US (Brittany Anton, RNC) FHR Baseline Rate : 125 (Brittany Anton, RNC) Variability: Moderate 6-25 bpm (Brittany Anton, RNC) Accelerations: 15X15 (Brittany Anton, RNC) Decelerations: None (Brittany Anton, RNC) Datetime: 02/14/2017 09:18 Dilatation (cm): 1.0 (Brittany Anton, RNC) Effacement (%): 50 (Brittanygreg Walton, RNC) Station: -1 (Brittanygreg Walton, RNC) Exam by: Dasia Walton RNC (Brittany Anton, RNC) Datetime: 02/14/2017 09:14 Comments: Monitors applied to abdomen. (Brittany Walton, RNC)
--- NOTE | 2017-02-14 20:02 | L&D Flow Sheet ---
LD Flowsheet Datetime Report Generated by CPN: 02/14/2017 20:00 Datetime: 02/14/2017 19:59 NBP Sys/Trudy/Mean (mmHg): 130 (QS system process) : 86 (QS system process) : 103 (QS system process) Pulse: 66 (QS system process) Datetime: 02/14/2017 19:57 NBP Sys/Trudy/Mean (mmHg): 145 (QS system process) : 84 (QS system process) : 108 (QS system process) Pulse: 66 (QS system process) LaborFlag: Labor (QS system process) Datetime: 02/14/2017 19:56 NBP Sys/Trudy/Mean (mmHg): 149 (QS system process) : 85 (QS system process) : 109 (QS system process) Pulse: 53 (QS system process) LaborFlag: Labor (QS system process) Datetime: 02/14/2017 19:55 NBP Sys/Trudy/Mean (mmHg): 148 (QS system process) : 78 (QS system process) : 104 (QS system process) Pulse: 64 (QS system process) LaborFlag: Labor (QS system process) Datetime: 02/14/2017 19:49 NBP Sys/Trudy/Mean (mmHg): 141 (QS system process) : 78 (QS system process) : 103 (QS system process) Pulse: 62 (QS system process) LaborFlag: Labor (QS system process) Datetime: 02/14/2017 19:30 Pain Scale: 3 (Danial Mendez RN) Pain Presence: Intermittent (Danial Mendez RN) Pain Type: Contraction (Danial Mendez RN) Pain Location: Abdomen; Back (Danial Mendez RN) Pain Goal: 1 (Danial Mendez RN) Pain Coping: Talking Through Contractions; Breathing Through Contractions (Danial Mendez RN) Level of Consciousness: Fully Conscious (Danial Mendez RN) Headache: Denies (Danial Mendez RN) Nausea/Vomiting: Denies (Danial Mendez RN) RUQ Epigastric Pain: Denies (Danial Mendez RN) Pitocin (milliunit): Pitocin Remains (milliunits) @ (Annotations: 14) (Danial Mendez RN) LaborFlag: Labor (QS system process) Datetime: 02/14/2017 19:22 Communication Comments: Report to S Letitia RN, Dasia Walton RNC out. (Brittany Walton RNC) Datetime: 02/14/2017 19:15 Monitor Mode: External; Palpation (FANNIE Hernandez) Frequency (min): 3.5-6 (Brittany Walton RNC) Quality: Mild/Moderate (Brittany Walton, RNC) Duration (sec): 60-120 (Brittany Walton, RNC) Duration Criteria: Less than Two 120 Second Contractions (Brittany Walton RNC) Pattern: Normal: <= 5 Contractions in 10 Minutes (Brittany Walton RNC) Resting Tone (Palpate): Relaxed (Brittany Walton, RNC) Monitor Mode: External US (Brittany Walton RNC) FHR Baseline Rate : 135 (Brittany Walton RNC) Variability: Moderate 6-25 bpm (Brittany Walton, RNC) Accelerations: 15X15 (Brittany Walton, RNC) Decelerations: None (Brittany Walton, RNC) Pitocin (milliunit): Pitocin Remains (milliunits) @ 14 (Brittany Walton RNC) Antibiotics: Penicillin IV (Units) @ 2.5 Million (Brittany Walton, RNC) Datetime: 02/14/2017 19:00 Monitor Mode: External; Palpation (Brittany Anton, RNC) Frequency (min): 3-6 (Brittany Anton, RNC) Quality: Moderate (Brittany Anton, RNC) Duration (sec): 60-120 (Brittany Anton, RNC) Duration Criteria: Less than Two 120 Second Contractions (Brittany Anton, RNC) Pattern: Normal: <= 5 Contractions in 10 Minutes (Brittany Anton, RNC) Resting Tone (Palpate): Relaxed (Brittany Anton, RNC) Monitor Mode: External US (Brittany Anton, RNC) FHR Baseline Rate : 130 (Brittany Anton, RNC) Variability: Moderate 6-25 bpm (Brittany Anton, RNC) Accelerations: 15X15 (Brittany Anton, RNC) Decelerations: None (Brittany Anton, RNC) Pitocin (milliunit): Pitocin Remains (milliunits) @ 14 (Brittany Anton, RNC) Datetime: 02/14/2017 18:49 NBP Sys/Trudy/Mean (mmHg): 122 (QS system process) : 89 (QS system process) : 102 (QS system process) Pulse: 65 (QS system process) LaborFlag: Labor (QS system process) Datetime: 02/14/2017 18:45 Monitor Mode: External; Palpation (Brittany Anton, RNC) Frequency (min): 2-4 (Brittany Anton, RNC) Quality: Mild/Moderate (Brittany Anton, RNC) Duration (sec): 60-120 (Brittany Anton, RNC) Duration Criteria: Less than Two 120 Second Contractions (Brittany Anton, RNC) Pattern: Normal: <= 5 Contractions in 10 Minutes (Brittany Anton, RNC) Resting Tone (Palpate): Relaxed (Brittany Anton, RNC) Monitor Mode: External US (Brittany Anton, RNC) FHR Baseline Rate : 135 (Brittany Anton, RNC) Variability: Moderate 6-25 bpm (Brittany Anton, RNC) Accelerations: 15X15 (Brittany Anton, RNC) Decelerations: None (Brittany Anton, RNC) Datetime: 02/14/2017 18:30 Monitor Mode: External; Palpation (Brittany Anton, RNC) Frequency (min): 2.5-4 (Brittany Anton, RNC) Quality: Mild/Moderate (Brittany Anton, RNC) Duration (sec): 60-120 (Brittany Anton, RNC) Duration Criteria: Less than Two 120 Second Contractions (Brittany Anton, RNC) Pattern: Normal: <= 5 Contractions in 10 Minutes (Brittany Anton, RNC) Resting Tone (Palpate): Relaxed (Brittany Anton, RNC) Monitor Mode: External US (Brittany Anton, RNC) FHR Baseline Rate : 135 (Brittany Anton, RNC) Variability: Moderate 6-25 bpm (Brittany Anton, RNC) Accelerations: 15X15 (Brittany Anton, RNC) Decelerations: None (Brittany Anton, RNC) Datetime: 02/14/2017 18:18 NBP Sys/Trudy/Mean (mmHg): 122 (QS system process) : 83 (QS system process) : 99 (QS system process) Pulse: 54 (QS system process) LaborFlag: Labor (QS system process) Datetime: 02/14/2017 18:15 Monitor Mode: External; Palpation (Brittany Anton, RNC) Frequency (min): 2.5-4 (Brittany Anton, RNC) Quality: Mild/Moderate (Brittany Anton, RNC) Duration (sec): 60-120 (Brittany Anton, RNC) Duration Criteria: Less than Two 120 Second Contractions (Brittany Anton, RNC) Pattern: Normal: <= 5 Contractions in 10 Minutes (Brittany Anton, RNC) Resting Tone (Palpate): Relaxed (Brittany Anton, RNC) Monitor Mode: External US (Brittany Anton, RNC) FHR Baseline Rate : 135 (Brittany Anton, RNC) Variability: Moderate 6-25 bpm (Brittany Anton, RNC) Accelerations: None (Brittany Anton, RNC) Decelerations: None (Brittany Anton, RNC) Datetime: 02/14/2017 18:00 Monitor Mode: External; Palpation (Brittany Anton, RNC) Frequency (min): 2.5-4 (Brittany Anton, RNC) Quality: Mild/Moderate (Brittany Anton, RNC) Duration (sec): 60-120 (Brittany Anton, RNC) Duration Criteria: Less than Two 120 Second Contractions (Brittany Anton, RNC) Pattern: Normal: <= 5 Contractions in 10 Minutes (Brittany Anton, RNC) Resting Tone (Palpate): Relaxed (Brittany Anton, RNC) Monitor Mode: External US (Brittany Anton, RNC) FHR Baseline Rate : 135 (Brittany Anton, RNC) Variability: Moderate 6-25 bpm (Brittany Anton, RNC) Accelerations: None (Brittany Walton, RNC) Decelerations: None (Brittany Walton, RNC) Pitocin (milliunit): Pitocin Remains (milliunits) @ 14 (Brittany Walton RNC) Datetime: 02/14/2017 17:50 NBP Sys/Trudy/Mean (mmHg): 114 (QS system process) : 78 (QS system process) : 91 (QS system process) Pulse: 55 (QS system process) LaborFlag: Labor (QS system process) Datetime: 02/14/2017 17:45 Monitor Mode: External; Palpation (Brittany Walton RNC) Frequency (min): 3-5 (Brittany Walton RNC) Quality: Mild/Moderate (Brittany Walton RNC) Duration (sec): 60-120 (Brittany Walton RNC) Duration Criteria: Less than Two 120 Second Contractions (Brittany Walton RNC) Pattern: Normal: <= 5 Contractions in 10 Minutes (Brittany Walton RNC) Resting Tone (Palpate): Relaxed (Brittany Anton, RNC) Monitor Mode: External US (Brittany Anton, RNC) FHR Baseline Rate : 130 (Brittany Anton, RNC) Variability: Moderate 6-25 bpm (Brittany Anton, RNC) Accelerations: 15X15 (Brittany Anton, RNC) Decelerations: None (Brittany Anton, RNC) Datetime: 02/14/2017 17:30 Monitor Mode: External; Palpation (Brittany Anton, RNC) Frequency (min): 2.5-5 (Brittany Anton, RNC) Quality: Mild/Moderate (Brittany Anton, RNC) Duration (sec): 60-120 (Brittany Anton, RNC) Duration Criteria: Less than Two 120 Second Contractions (Brittany Anton, RNC) Pattern: Normal: <= 5 Contractions in 10 Minutes (Brittany Anton, RNC) Resting Tone (Palpate): Relaxed (Brittany Anton, RNC) Monitor Mode: External US (Brittany Anton, RNC) FHR Baseline Rate : 130 (Brittany Anton, RNC) Variability: Moderate 6-25 bpm (Brittany Anton, RNC) Accelerations: None (Brittany Anton, RNC) Decelerations: None (Brittany Anton, RNC) Datetime: 02/14/2017 17:20 NBP Sys/Trudy/Mean (mmHg): 122 (QS system process) : 78 (QS system process) : 96 (QS system process) Pulse: 58 (QS system process) LaborFlag: Labor (QS system process) Datetime: 02/14/2017 17:15 Monitor Mode: External; Palpation (Brittany Walton, RNC) Frequency (min): 1.5-3 (Brittany Walton, RNC) Quality: Mild/Moderate (Brittany Anton, RNC) Duration (sec): 60-120 (Brittany Anton, RNC) Duration Criteria: Less than Two 120 Second Contractions (Brittanygreg Walton, RNC) Pattern: Normal: <= 5 Contractions in 10 Minutes (Brittany Anton, RNC) Resting Tone (Palpate): Relaxed (Brittany Walton, RNC) Monitor Mode: External US (Brittany Walton, RNC) FHR Baseline Rate : 135 (Brittany Anton, RNC) Variability: Moderate 6-25 bpm (Brittany Anton, RNC) Accelerations: 15X15 (Brittany Anton, RNC) Decelerations: None (Brittany Walton, RNC) Pitocin (milliunit): Pitocin Increased to (milliunits) @ 14 (Brittany Walton, RNC) Datetime: 02/14/2017 17:00 Monitor Mode: External; Palpation (Brittany Anton, RNC) Frequency (min): 1.5-2 (Brittany Anton, RNC) Quality: Mild (Brittany Anton, RNC) Duration (sec): 50-90 (Brittany Anton, RNC) Duration Criteria: Less than Two 120 Second Contractions (Brittany Anton, RNC) Pattern: Normal: <= 5 Contractions in 10 Minutes (Brittany Anton, RNC) Resting Tone (Palpate): Relaxed (Brittany Anton, RNC) Monitor Mode: External US (Brittany Anton, RNC) FHR Baseline Rate : 135 (Brittany Anton, RNC) Variability: Moderate 6-25 bpm (Brittany Anton, RNC) Accelerations: 15X15 (Brittany Anton, RNC) Decelerations: None (Brittany Anton, RNC) Datetime: 02/14/2017 16:48 NBP Sys/Trudy/Mean (mmHg): 115 (QS system process) : 78 (QS system process) : 92 (QS system process) Pulse: 68 (QS system process) LaborFlag: Labor (QS system process) Datetime: 02/14/2017 16:45 Monitor Mode: External; Palpation (Brittany Anton, RNC) Frequency (min): 1.5-2 (Brittany Anton, RNC) Quality: Mild (Brittany Anton, RNC) Duration (sec): 60-90 (Brittany Anton, RNC) Duration Criteria: Less than Two 120 Second Contractions (Brittany Anton, RNC) Pattern: Normal: <= 5 Contractions in 10 Minutes (Brittany Anton, RNC) Resting Tone (Palpate): Relaxed (Brittany Anton, RNC) Monitor Mode: External US (Brittany Anton, RNC) FHR Baseline Rate : 140 (Brittany Anton, RNC) Variability: Moderate 6-25 bpm (Brittany Anton, RNC) Accelerations: 15X15 (Brittany Anton, RNC) Decelerations: None (Brittany Anton, RNC) Pitocin (milliunit): Pitocin Increased to (milliunits) @ 10 (Brittany Anton, RNC) Datetime: 02/14/2017 16:30 Monitor Mode: External; Palpation (Brittany Anton, RNC) Frequency (min): 3-5 (Brittany Anton, RNC) Quality: Mild (Brittany Anton, RNC) Duration (sec): 60-90 (Brittany Anton, RNC) Duration Criteria: Less than Two 120 Second Contractions (Brittany Anton, RNC) Pattern: Normal: <= 5 Contractions in 10 Minutes (Brittany Anton, RNC) Resting Tone (Palpate): Relaxed (Brittany Anton, RNC) Monitor Mode: External US (Brittany Anton, RNC) FHR Baseline Rate : 135 (Brittany Anton, RNC) Variability: Moderate 6-25 bpm (Brittany Anton, RNC) Accelerations: 15X15 (Brittany Anton, RNC) Decelerations: None (Brittany Anton, RNC) Datetime: 02/14/2017 16:19 NBP Sys/Trudy/Mean (mmHg): 115 (QS system process) : 76 (QS system process) : 90 (QS system process) Pulse: 63 (QS system process) LaborFlag: Labor (QS system process) Datetime: 02/14/2017 16:15 Monitor Mode: External; Palpation (Brittany Anton, RNC) Frequency (min): 3-5 (Brittany Anton, RNC) Quality: Mild (Brittany Anton, RNC) Duration (sec): 60-90 (Brittany Anton, RNC) Duration Criteria: Less than Two 120 Second Contractions (Brittany Anton, RNC) Pattern: Normal: <= 5 Contractions in 10 Minutes (Brittany Anton, RNC) Resting Tone (Palpate): Relaxed (Brittany Anton, RNC) Monitor Mode: External US (Brittany Anton, RNC) FHR Baseline Rate : 135 (Brittany Anton, RNC) Variability: Moderate 6-25 bpm (Brittany Anton, RNC) Accelerations: 15X15 (Brittany Anton, RNC) Pitocin (milliunit): Pitocin Increased to (milliunits) @ 8 (Brittany Anton, RNC) Datetime: 02/14/2017 16:00 Monitor Mode: External; Palpation (Brittany Anton, RNC) Frequency (min): 3-5 (Brittany Anton, RNC) Quality: Mild/Moderate (Brittany Anton, RNC) Duration (sec): 60-120 (Brittany Anton, RNC) Duration Criteria: Less than Two 120 Second Contractions (Brittany Anton, RNC) Pattern: Normal: <= 5 Contractions in 10 Minutes (Brittany Anton, RNC) Resting Tone (Palpate): Relaxed (Brittany Anton, RNC) Monitor Mode: External US (Brittany Anton, RNC) FHR Baseline Rate : 135 (Brittany Walton, RNC) Variability: Moderate 6-25 bpm (Brittany Anton, RNC) Accelerations: 15X15 (Brittany Anton, RNC) Decelerations: None (Brittany Walton, RNC) Datetime: 02/14/2017 15:48 NBP Sys/Trudy/Mean (mmHg): 120 (QS system process) : 77 (QS system process) : 93 (QS system process) Pulse: 66 (QS system process) LaborFlag: Labor (QS system process) Datetime: 02/14/2017 15:45 Monitor Mode: External; Palpation (Brittany Walton, RNC) Frequency (min): 3-5 (Brittany Anton, RNC) Quality: Mild/Moderate (Brittany Anton, RNC) Duration (sec): 60-120 (Brittany Anton, RNC) Duration Criteria: Less than Two 120 Second Contractions (Brittany Anton, RNC) Pattern: Normal: <= 5 Contractions in 10 Minutes (Brittany Anton, RNC) Resting Tone (Palpate): Relaxed (Brittanygreg Walton, RNC) Monitor Mode: External US (Brittany Walton, RNC) FHR Baseline Rate : 135 (Brittany Anton, RNC) Variability: Moderate 6-25 bpm (Brittany Anton, RNC) Accelerations: 15X15 (Brittany Anton, RNC) Decelerations: None (Brittany Walton, RNC) Pitocin (milliunit): Pitocin Increased to (milliunits) @ 6 (Brittanygreg Walton, RNC) Datetime: 02/14/2017 15:30 Monitor Mode: External; Palpation (Brittany Walton, RNC) Frequency (min): 4-6 (Brittany Walton, RNC) Quality: Mild/Moderate (Brittany Anton, RNC) Duration (sec): 60-120 (Brittany Anton, RNC) Duration Criteria: Less than Two 120 Second Contractions (Brittany Walton, RNC) Pattern: Normal: <= 5 Contractions in 10 Minutes (Brittany Walton, RNC) Resting Tone (Palpate): Relaxed (Brittany Walton, RNC) Monitor Mode: External US (Brittany Walton, RNC) FHR Baseline Rate : 130 (Brittany Anton, RNC) Variability: Moderate 6-25 bpm (Brittany Anton, RNC) Accelerations: 15X15 (Brittany Anton, RNC) Decelerations: None (Brittany Anton, RNC) Pitocin (milliunit): Pitocin Increased to (milliunits) @ 4 (Brittany Anton, RNC) Datetime: 02/14/2017 15:18 NBP Sys/Trudy/Mean (mmHg): 114 (QS system process) : 81 (QS system process) : 95 (QS system process) Pulse: 62 (QS system process) LaborFlag: Labor (QS system process) Datetime: 02/14/2017 15:15 Pitocin (milliunit): Pitocin Started (milliunits) @ 2; Pitocin 20 Units in 1000ml NS (Brittany Walton [facility]) Antibiotics: Start Antibiotics; Penicillin IV (Units) @ 5 Million (Brittany Walton [facility]) Datetime: 02/14/2017 15:00 Monitor Mode: External (Brittany Anton, RNC) Frequency (min): 3-7 (Brittany Anton, RNC) Quality: Mild (Brittany Anton, RNC) Duration (sec): 60-90 (Brittany Anton, RNC) Duration Criteria: Less than Two 120 Second Contractions (Brittany Anton, RNC) Pattern: Normal: <= 5 Contractions in 10 Minutes (Brittany Anton, RNC) Resting Tone (Palpate): Relaxed (Brittany Anton, RNC) Monitor Mode: External US (Brittany Anton, RNC) FHR Baseline Rate : 135 (Brittany Anton, RNC) Variability: Moderate 6-25 bpm (Brittany Anton, RNC) Accelerations: 15X15 (Brittany Anton, RNC) Decelerations: None (Brittany Anton, RNC) Datetime: 02/14/2017 14:30 Monitor Mode: External; Palpation (Brittany Anton, RNC) Frequency (min): 4-7 (Brittany Anton, RNC) Quality: Mild/Moderate (Brittany Anton, RNC) Duration (sec): 60-120 (Brittany Anton, RNC) Duration Criteria: Less than Two 120 Second Contractions (Brittany Anton, RNC) Pattern: Normal: <= 5 Contractions in 10 Minutes (Brittany Anton, RNC) Resting Tone (Palpate): Relaxed (Brittany Anton, RNC) Monitor Mode: External US (Brittany Anton, RNC) FHR Baseline Rate : 125 (Brittany Anton, RNC) Variability: Moderate 6-25 bpm (Brittany Anton, RNC) Accelerations: 15X15 (Brittany Anton, RNC) Decelerations: None (Brittany Anton, RNC) Datetime: 02/14/2017 14:00 Monitor Mode: External; Palpation (Brittany Anton, RNC) Frequency (min): 3-5 (Brittany Anton, RNC) Quality: Mild (Brittany Anton, RNC) Duration (sec): 60-90 (Brittany Anton, RNC) Duration Criteria: Less than Two 120 Second Contractions (Brittany Anton, RNC) Pattern: Normal: <= 5 Contractions in 10 Minutes (Brittany Anton, RNC) Resting Tone (Palpate): Relaxed (Brittany Anton, RNC) Monitor Mode: External US (Brittany Anton, RNC) FHR Baseline Rate : 135 (Brittany Anton, RNC) Variability: Moderate 6-25 bpm (Brittany Anton, RNC) Accelerations: 15X15 (Brittany Anton, RNC) Decelerations: None (Brittany Anton, RNC) Datetime: 02/14/2017 13:30 Monitor Mode: External; Palpation (Brittany Anton, RNC) Frequency (min): 3-5 (Brittany Anton, RNC) Quality: Mild (Brittany Anton, RNC) Duration (sec): 60-120 (Brittany Anton, RNC) Duration Criteria: Less than Two 120 Second Contractions (Brittany Anton, RNC) Pattern: Normal: <= 5 Contractions in 10 Minutes (Brittany Anton, RNC) Resting Tone (Palpate): Relaxed (Brittany Anton, RNC) Monitor Mode: External US (Brittany Anton, RNC) FHR Baseline Rate : 125 (Brittany Anton, RNC) Variability: Moderate 6-25 bpm (Brittany Anton, RNC) Accelerations: 15X15 (Brittany Anton, RNC) Decelerations: None (Brittany Anton, RNC) Datetime: 02/14/2017 13:00 Monitor Mode: External; Palpation (Brittany Anton, RNC) Frequency (min): 3-5 (Brittany Anton, RNC) Quality: Mild (Brittany Anton, RNC) Duration (sec): 60-90 (Brittany Anton, RNC) Duration Criteria: Less than Two 120 Second Contractions (Brittany Anton, RNC) Pattern: Normal: <= 5 Contractions in 10 Minutes (Brittany Anton, RNC) Resting Tone (Palpate): Relaxed (Brittany Anton, RNC) Monitor Mode: External US (Brittany Anton, RNC) FHR Baseline Rate : 125 (Brittany Anton, RNC) Variability: Moderate 6-25 bpm (Brittany Anton, RNC) Accelerations: 15X15 (Brittany Anton, RNC) Decelerations: None (Brittany Anton, RNC) Datetime: 02/14/2017 12:30 Monitor Mode: External; Palpation (Brittany Anton, RNC) Frequency (min): 3-5 (Brittany Anton, RNC) Quality: Mild (Brittany Anton, RNC) Duration (sec): 60-90 (Brittany Anton, RNC) Duration Criteria: Less than Two 120 Second Contractions (Brittany Anton, RNC) Pattern: Normal: <= 5 Contractions in 10 Minutes (Brittany Anton, RNC) Resting Tone (Palpate): Relaxed (Brittany Anton, RNC) Monitor Mode: External US (Brittany Anton, RNC) FHR Baseline Rate : 120 (Brittany Anton, RNC) Variability: Moderate 6-25 bpm (Brittany Anton, RNC) Accelerations: 15X15 (Brittany Anton, RNC) Decelerations: None (Brittany Anton, RNC) Datetime: 02/14/2017 12:03 Patient Care Comments: Pt back to bed (Brittany Anton, RNC) Datetime: 02/14/2017 12:00 Monitor Mode: External; Palpation (Brittany Anton, RNC) Frequency (min): 5-6 (Brittany Anton, RNC) Quality: Mild (Brittany Anton, RNC) Duration (sec): 60-90 (Brittany Anton, RNC) Duration Criteria: Less than Two 120 Second Contractions (Brittany Anton, RNC) Pattern: Normal: <= 5 Contractions in 10 Minutes (Brittany Anton, RNC) Resting Tone (Palpate): Relaxed (Brittany Anton, RNC) Monitor Mode: External US (Brittany Anton, RNC) FHR Baseline Rate : 135 (Brittany Anton, RNC) Variability: Moderate 6-25 bpm (Brittany Anton, RNC) Accelerations: 15X15 (Brittany Anton, RNC) Decelerations: None (Brittany Anton, RNC) Datetime: 02/14/2017 11:59 I/O Interventions: Up to BR (Brittany Anton, RNC) Datetime: 02/14/2017 11:30 Monitor Mode: External; Palpation (Brittany Anton, RNC) Frequency (min): 3-5 (Brittany Anton, RNC) Quality: Mild/Moderate (Brittany Anton, RNC) Duration (sec): 60-120 (Brittany Anton, RNC) Duration Criteria: Less than Two 120 Second Contractions (Brittany Anton, RNC) Pattern: Normal: <= 5 Contractions in 10 Minutes (Brittany Anton, RNC) Resting Tone (Palpate): Relaxed (Brittany Anton, RNC) Monitor Mode: External US (Brittany Anton, RNC) FHR Baseline Rate : 135 (Brittany Anton, RNC) Variability: Moderate 6-25 bpm (Brittany Anton, RNC) Accelerations: 15X15 (Brittany Anton, RNC) Decelerations: None (Brittany Anton, RNC) Datetime: 02/14/2017 11:00 Monitor Mode: External; Palpation (Brittany Anton, RNC) Frequency (min): 3-5 (Brittany Anton, RNC) Quality: Mild (Brittany Walton, RNC) Duration (sec): 60-90 (Brittany Walton, RNC) Duration Criteria: Less than Two 120 Second Contractions (Brittany Walton, RNC) Pattern: Normal: <= 5 Contractions in 10 Minutes (Brittany Walton, RNC) Resting Tone (Palpate): Relaxed (Brittany Walton, RNC) Monitor Mode: External US (Brittany Walton, RNC) FHR Baseline Rate : 130 (Brittany Walton, RNC) Variability: Moderate 6-25 bpm (Brittanygreg Walton, RNC) Accelerations: 15X15 (Brittanysully Walton, RNC) Decelerations: None (Brittany Walton, RNC) Cervical Ripening Agents: Cytotec @ 25 mcg PV (Brittany Walton, RNC) Datetime: 02/14/2017 10:30 Monitor Mode: External; Palpation (Brittany Walton, RNC) Frequency (min): 3-6 (Brittany Walton, RNC) Quality: Mild (Brittany Walton RNC) Duration (sec): 60-120 (Brittany Walton, RNC) Duration Criteria: Less than Two 120 Second Contractions (Brittany Walton, RNC) Pattern: Normal: <= 5 Contractions in 10 Minutes (Brittany Walton, RNC) Resting Tone (Palpate): Relaxed (Brittany Walton, RNC) Monitor Mode: External US (Brittany Walton, RNC) FHR Baseline Rate : 135 (Brittany Anton, RNC) Variability: Moderate 6-25 bpm (Brittanygreg Walton, RNC) Accelerations: 15X15 (Brittanygreg Walton, RNC) Decelerations: None (Brittany Anton, RNC) Datetime: 02/14/2017 10:00 Monitor Mode: External; Palpation (Brittany Anton, RNC) Frequency (min): 3-7 (Brittany Anton, RNC) Quality: Mild (Brittany Anton, RNC) Duration (sec): 60-120 (Brittany Anton, RNC) Duration Criteria: Less than Two 120 Second Contractions (Brittany Anton, RNC) Pattern: Normal: <= 5 Contractions in 10 Minutes (Brittany Anton, RNC) Resting Tone (Palpate): Relaxed (Brittany Anton, RNC) Monitor Mode: External US (Brittany Anton, RNC) FHR Baseline Rate : 135 (Brittany Anton, RNC) Variability: Moderate 6-25 bpm (Brittany Anton, RNC) Accelerations: 15X15 (Brittany Anton, RNC) Decelerations: None (Brittany Anton, RNC) Datetime: 02/14/2017 09:30 Monitor Mode: External; Palpation (Brittany Anton, RNC) Frequency (min): 2-4 (Brittany Anton, RNC) Quality: Mild (Brittany Anton, RNC) Duration (sec): 60-90 (Brittany Anton, RNC) Duration Criteria: Less than Two 120 Second Contractions (Brittany Anton, RNC) Pattern: Normal: <= 5 Contractions in 10 Minutes (Brittany Anton, RNC) Resting Tone (Palpate): Relaxed (Brittanygreg Walton, RNC) Monitor Mode: External US (Brittany Walton, RNC) FHR Baseline Rate : 125 (Brittany Anton, RNC) Variability: Moderate 6-25 bpm (Brittany Anton, RNC) Accelerations: 15X15 (Brittany Anton, RNC) Decelerations: None (Brittany Anton, RNC) Datetime: 02/14/2017 09:18 Dilatation (cm): 1.0 (Brittany Anton, RNC) Effacement (%): 50 (Brittany Walton, RNC) Station: -1 (Brittany Walton, RNC) Exam by: Dasia Walton RNC (Brittany Walton, RNC) Datetime: 02/14/2017 09:14 Comments: Monitors applied to abdomen. (Brittany Walton, RNC) Datetime: 02/14/2017 07:38 Comments: Monitors removed from abdomen per MD order. (Brittany Walton RNC) Medication Comments: Cervidil removed intact (Brittany Walton RNC) Datetime: 02/14/2017 07:03 Respirations: 17 (FANNIE Hernandez) Temperature (F): 98.0 (FANNIE Hernandez) Temperature (C): 36.7 (QS system process) Temperature Route: Oral (FANNIE Hernandez) Level of Consciousness: Fully Conscious (FANNIE Hernandez) DTR's/Clonus: DTRs 2+; No Clonus (FANNIE Hernandez) Headache: Denies (FANNIE Hernandez) Breath Sounds, Left: Clear and Equal (FANNIE Hernandez) Breath Sounds, Right: Clear and Equal (Brittany Walton RNC) Nausea/Vomiting: Denies (Brittany Anton, RNC) RUQ Epigastric Pain: Denies (Brittany Walton, RNC) LaborFlag: Labor (QS system process) Datetime: 02/14/2017 06:11 LaborFlag: Labor (QS system process) Datetime: 02/14/2017 06:03 LaborFlag: Labor (QS system process) Datetime: 02/14/2017 05:04 LaborFlag: Labor (QS system process) Datetime: 02/14/2017 04:11 LaborFlag: Labor (QS system process) Datetime: 02/14/2017 03:03 LaborFlag: Labor (QS system process) Datetime: 02/14/2017 02:04 LaborFlag: Labor (QS system process) Datetime: 02/14/2017 01:03 LaborFlag: Labor (QS system process) Datetime: 02/13/2017 23:33 LaborFlag: Labor (QS system process) Datetime: 02/13/2017 23:03 LaborFlag: Labor (QS system process) Datetime: 02/13/2017 22:33 LaborFlag: Labor (QS system process) Datetime: 02/13/2017 22:03 LaborFlag: Labor (QS system process) Datetime: 02/13/2017 21:34 LaborFlag: Labor (QS system process) Datetime: 02/13/2017 21:03 LaborFlag: Labor (QS system process) Datetime: 02/13/2017 20:34 LaborFlag: Labor (QS system process) Datetime: 02/13/2017 20:03 LaborFlag: Labor (QS system process) Datetime: 02/13/2017 19:03 LaborFlag: Labor (QS system process) Datetime: 02/13/2017 18:26 LaborFlag: Labor (QS system process) Datetime: 02/13/2017 18:25 Stage of : Labor (Brittany Walton, [facility])
[2017-02-14] MEDS ORDERED: MISOPROSTOL 0.2 MG TABLET ONE (22:31)
[2017-02-14] MEDS ORDERED: LIDOCAINE 1% INJ-PF (10 MG/ML) 30 ML SDV ONE (22:32)
[2017-02-14] MEDS ORDERED: PROMETHAZINE HCL INJ 25 MG/1 ML VIAL IV PRN (23:50)
[2017-02-14] MEDS ORDERED: MAGNESIUM HYDROXIDE SUSP 30 ML UDCUP PO PRN (23:50)
[2017-02-14] MEDS ORDERED: ACETAMINOPHEN 650 MG SUPP.RECT PR PRN (23:50)
[2017-02-14] MEDS ORDERED: DIPH/PERTUSS(ACELL)/TETANUS VAC/PF 0.5 ML SYR (>=10YO) IM PRN (23:50)
[2017-02-14] MEDS ORDERED: PSEUDOEPHEDRINE HCL 30 MG TABLET PO PRN (23:50)
[2017-02-14] MEDS ORDERED: NA PHOS,M-B/NA PHOS,DI-BA (ADULT) 133 ML ENEMA PR PRN (23:50)
[2017-02-14] MEDS ORDERED: DIPHENHYDRAMINE HCL 25 MG CAPSULE PO PRN (23:50)
[2017-02-14] MEDS ORDERED: DIBUCAINE 1% OINTMENT 28 GM TP PRN (23:50)
[2017-02-14] MEDS ORDERED: PROMETHAZINE HCL 25 MG TABLET PO PRN (23:50)
[2017-02-14] MEDS ORDERED: GLYCERIN/WITCH HAZEL LEAF 1 EACH MED..PAD TP PRN (23:50)
[2017-02-14] MEDS ORDERED: BENZOCAINE/MENTHOL AEROSOL SPRAY 56 ML TOP PRN (23:50)
[2017-02-14] MEDS ORDERED: ACETAMINOPHEN WITH CODEINE #3 TABLET PO PRN ×2 (23:50)
[2017-02-14] MEDS ORDERED: ZOLPIDEM TARTRATE 5 MG TABLET PO PRN (23:50)
[2017-02-14] MEDS ORDERED: PROMETHAZINE HCL 25 MG SUPP.RECT PR PRN (23:50)
[2017-02-14] MEDS ORDERED: OXYTOCIN/NORMAL SALINE 1,000 ML IV PRN (23:50)
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
[2017-02-15] MEDS ORDERED: MEASLES,MUMPS&RUBELLA VACC/PF 0.5 ML VIAL SUBCUT ONE (01:45)
--- NOTE | 2017-02-15 02:02 | Delivery Summary ---
Del Sum A-C Datetime Report Generated by CPN: 02/15/2017 02:02 ADMISSION DATA Chief Complaint: Scheduled Induction of Labor Indication for Induction: Postterm Admission Impression: Postterm, Intrauterine Admit Provider Comments: plan cervidil indcution after reactive nst, gbs prophylaxis DELIVERY PERSONNEL Delivery Doctor:: Mando Degroot MD Labor and Delivery Nurse:: Danial Mendez RNcans vacuum tester Nurse:: Samantha Dong RN Nursery Nurse:: Maria D Zabala, RN Food Service Clerk/ADOPTION SERVICES MANAGER: Fab Ertel, ADOPTION SERVICES MANAGER MATERNAL INFORMATION Delivery Anesthesia: Epidural Medications After Delivery: Pitocin Drip 20 Units/1000ml NSS Estimated Blood Loss (ml): 250 Maternal Complications: None Provider Comments: No sutures palpable on rectal exam. LABOR SUMMARY EDC: 02/05/2017 00:00 No. Babies in Womb: 1 Attempted: No Labor Anesthesia: Epidural LABOR INFORMATION Reason for Induction: Post Dates Onset of Labor: 02/14/2017 20:17 Complete Dilatation: 02/14/2017 22:34 Cervical Ripening Agents: Cervidil; Cytotec @ Oxytocin: Induction Group B Beta Strep: Positive Antibiotics # of Doses: 2 Antibiotics Time of Last Dose: 1914 Name of Antibiotic Given: PCN Steroids Given: None Reason Steroids Not Administered: Not Applicable MEMBRANES Membranes Rupture Method: Spontaneous Rupture of Membranes: 02/14/2017 20:17 Length of Rupture (hr): 2.85 Amniotic Fluid Color: Light Meconium Amniotic Fluid Amount: Moderate Amniotic Fluid Odor: Normal STAGES OF LABOR Stage 1 hr: 2 Stage 1 min: 17 Stage 2 hr: 0 Stage 2 min: 34 Stage 3 hr: 0 Stage 3 min: 3 Total Time in Labor hr: 2 Total Time in Labor min: 54 VAGINAL DELIVERY Episiotomy: None Laceration Extension: Fourth Degree Laceration Type: Perineal Laceration Repair: Yes Laceration Repair Note: 1/2 cm 4th degree repaired with 3-0 chromic in running fashion on the rectal mucosa time two layers. The partially torn external anal sphincter repaired with interupted figure 8 sutures of 3-0 chromic times two. The remainder of the laceration repaired in usual fashion. She will stay on a stool softener. Sponge Count Correct: Yes; Vaginal Sweep Performed Sharps Count Correct: Yes CSECTION DELIVERY Primary Indication: N/A Secondary Indication: N/A CSection Incidence: N/A Labor: N/A Elective: N/A CSection Incision: N/A BABY A INFORMATION Delivery Date/Time: 02/14/2017 23:08 Method of Delivery: Vaginal Born in Route : No : N/A Forceps: N/A Vacuum Extraction: N/A Shoulder Dystocia : No PRESENTATION/POSITION BABY A Presentation: Cephalic Cephalic Presentation: Vertex Vertex Position: Left Occipital Anterior Breech Presentation: N/A PLACENTA INFORMATION BABY A Placenta Delivery Time : 02/14/2017 23:11 Placenta Method of Delivery: Spontaneous Placenta Status: Delivered SCORES BABY A Heart Rate 1 min: >100 bpm Resp Effort 1 min: Good Cry Reflex Irritability 1 min: Cough or Sneeze or Pulls Away Muscle Tone 1 min: Some Flexion of Extremities Color 1 min: Body Machias, Extremities Blue Resuscitation Effort 1 min: N/A SCORE 1 MIN: 8 Heart Rate 5 min: >100 bpm Resp Effort 5 min: Good Cry Reflex Irritability 5 min: Cough or Sneeze or Pulls Away Muscle Tone 5 min: Active Motion Color 5 min: Body Machias, Extremities Blue Resuscitation Effort 5 min: N/A SCORE 5 MIN: 9 INFANT INFORMATION BABY A Gestational Age at Delivery: 41.2 Gestational Status: Late Term- 41- 41.6 Weeks Infant Outcome : Liveborn Infant Condition : Stable Sex: Male IDENTIFICATION BABY A Verification Date/Time: 02/14/2017 23:17 ID Band Number: [id number] Mother's Name Verified: Yes RN Verifying Infant: Dasia Jensen Rn Additional Verifying Personnel: Mariaelena David US WEIGHT/LENGTH BABY A Infant Birthweight (gm): 3450 Weight (lb): 7 Infant Weight (oz): 10 Length (in): 20.50 Length (cm): 52.07 CORD INFORMATION BABY A No. Cord Vessels: 3 Nuchal Cord : Around Neck x1, Loose Cord Blood Taken: Yes-For Eval (Mom's Blood Type - or O+) Suction: Mouth; Nose ASSESSMENT BABY A Infant Complications: Meconium Physical Findings at Delivery: Molding of the Head Infant Respirations: Appears Normal Skin to Skin: Yes Associate Director Of Development/ALS Called : No Infant Care By: Erika Zabala RN Transferred To: Remains with Mother BABY B INFORMATION : N/A SIGNATURES Signature: with User ID: [email or web address]
[2017-02-15] MEDS: IBUPROFEN 800 MG TABLET PO SCH ×3 (06:08→21:30)
--- NOTE | 2017-02-15 07:01 | L&D Flow Sheet ---
LD Flowsheet Datetime Report Generated by CPN: 02/15/2017 07:00 Datetime: 02/15/2017 01:17 NBP Sys/Trudy/Mean (mmHg): 121 (QS system process) : 71 (QS system process) : 90 (QS system process) Pulse: 84 (QS system process) Datetime: 02/15/2017 01:02 NBP Sys/Trudy/Mean (mmHg): 117 (QS system process) : 69 (QS system process) : 86 (QS system process) Pulse: 83 (QS system process) Datetime: 02/15/2017 01:00 Stage of : Recovery (Danial Mendez, RN) Pain Scale: 0 (Danial Mendez RN) Pain Presence: None/Denies (Danial Mendez, RN) Pain Type: N/A (Danial Mendez, RN) Datetime: 02/15/2017 00:47 NBP Sys/Trudy/Mean (mmHg): 124 (QS system process) : 75 (QS system process) : 94 (QS system process) Pulse: 87 (QS system process) Datetime: 02/15/2017 00:33 NBP Sys/Trudy/Mean (mmHg): 123 (QS system process) : 75 (QS system process) : 94 (QS system process) Pulse: 80 (QS system process) Datetime: 02/15/2017 00:18 NBP Sys/Trudy/Mean (mmHg): 114 (QS system process) : 64 (QS system process) : 85 (QS system process) Pulse: 79 (QS system process) Datetime: 02/15/2017 00:02 NBP Sys/Trudy/Mean (mmHg): 123 (QS system process) : 65 (QS system process) : 88 (QS system process) Pulse: 71 (QS system process) Datetime: 02/15/2017 00:00 Stage of : Recovery (Danial Mendez, RN) Pain Scale: 0 (Danial Mendez, RN) Pain Presence: None/Denies (Danial Mendez, RN) Pain Type: N/A (Danial Mendez, RN) Datetime: 02/14/2017 23:47 NBP Sys/Trudy/Mean (mmHg): 128 (QS system process) : 66 (QS system process) : 91 (QS system process) Pulse: 78 (QS system process) Datetime: 02/14/2017 23:45 Stage of : Recovery (Danial Mendez, RN) Respirations: 16 (Danial Mendez, RN) Datetime: 02/14/2017 23:40 Stage of : Recovery (Danial Andrea, RN) Datetime: 02/14/2017 23:33 NBP Sys/Trudy/Mean (mmHg): 134 (QS system process) : 83 (QS system process) : 100 (QS system process) Pulse: 85 (QS system process) Datetime: 02/14/2017 23:30 Stage of : Recovery (Danial Andrea, RN) Datetime: 02/14/2017 23:15 Stage of : Recovery (Danial Mendez RN) Datetime: 02/14/2017 23:02 NBP Sys/Trudy/Mean (mmHg): 134 (QS system process) : 91 (QS system process) : 108 (QS system process) Pulse: 70 (QS system process) LaborFlag: Labor (QS system process) Datetime: 02/14/2017 23:00 Frequency (min): 3-4 (Danial Mendez RN) Duration (sec): 50-80 (Danial Mendez RN) Monitor Mode: External US (Danial Mendez RN) FHR Baseline Rate : 115 (Danial Mendez RN) Variability: Moderate 6-25 bpm (Danial Mendez RN) Patient Care Comments: Pt pushing with contractions (Danial Mendez RN) Communication: RN at Bedside (Danial Mendez RN) Datetime: 02/14/2017 22:47 NBP Sys/Trudy/Mean (mmHg): 131 (QS system process) : 83 (QS system process) : 101 (QS system process) Pulse: 64 (QS system process) LaborFlag: Labor (QS system process) Datetime: 02/14/2017 22:45 Monitor Mode: External (Danial Mendez RN) Frequency (min): x3 (Danial Mendez RN) Quality: Moderate (Danial Mendez RN) Resting Tone (Palpate): Relaxed (Danial Mendez RN) Contraction Comments: Pt pushing between contractions (Danial Mendez RN) Monitor Mode: External US (Danial Mendez RN) FHR Baseline Rate : 115 (Danial Mendez RN) Variability: Moderate 6-25 bpm (Danial Mendez RN) Datetime: 02/14/2017 22:34 Dilatation (cm): 10.0 (Danial Mendez, RN) Effacement (%): 100 (Danial Mendez, RN) Station: 2 (Danial Mendez, RN) Exam by: Oma Rob RN (Danial Mendez, RN) Datetime: 02/14/2017 22:30 Frequency (min): 3 (Danial Mendez, RN) Duration (sec): 90-100 (Danial Mendez, RN) Monitor Mode: External US (Danial Mendez, RN) FHR Baseline Rate : 115 (Danial Mendez, RN) Variability: Moderate 6-25 bpm (Danial Mendez, RN) Datetime: 02/14/2017 22:29 Actions for Decelerations: Oxygen Applied (Samantha Lattibeaudeir, RN) Oxygen Amount : 10 (Samantha Lattibeaudeir, RN) Datetime: 02/14/2017 22:18 NBP Sys/Trudy/Mean (mmHg): 118 (QS system process) : 69 (QS system process) : 89 (QS system process) Pulse: 60 (QS system process) LaborFlag: Labor (QS system process) Datetime: 02/14/2017 22:15 Frequency (min): 3.5-4 (Danial Mendez RN) Duration (sec): 70-110 (Danial Mendez RN) Communication: RN at Bedside (Danial Mendez RN) Communication Comments: Moving patient to lithotomy position (Danial Mendez RN) Datetime: 02/14/2017 22:03 NBP Sys/Trudy/Mean (mmHg): 134 (QS system process) : 84 (QS system process) : 102 (QS system process) Pulse: 55 (QS system process) LaborFlag: Labor (QS system process) Datetime: 02/14/2017 22:00 Monitor Mode: External (Danial Mendez, RN) Frequency (min): 3-3.5 (Danial Mendez, RN) Quality: Moderate (Danial Mendez, RN) Duration (sec): 60-120 (Danial Mendez, RN) Resting Tone (Palpate): Relaxed (Danial Mendez, RN) Monitor Mode: External US (Danial Mendez, RN) FHR Baseline Rate : 125 (Danial Mendez, RN) Variability: Moderate 6-25 bpm (Danial Mendez, RN) Patient Position/Activity: Left Lateral; Peanut Ball (Danial Mendez, RN) Datetime: 02/14/2017 21:48 NBP Sys/Trudy/Mean (mmHg): 124 (QS system process) : 81 (QS system process) : 98 (QS system process) Pulse: 60 (QS system process) LaborFlag: Labor (QS system process) Datetime: 02/14/2017 21:45 Monitor Mode: External (Danial Mendez, RN) Frequency (min): 2.5-4 (Danial Mendez, RN) Quality: Moderate (Danial Mendez, RN) Duration (sec): 70-90 (Danial Mendez, RN) Resting Tone (Palpate): Relaxed (Danial Mendez, RN) Monitor Mode: External US (Danial Mendez, RN) FHR Baseline Rate : 125 (Danial Mendez, RN) Variability: Moderate 6-25 bpm (Danial Andrea, RN) Accelerations: 10X10 (Danial Andrea, RN) Datetime: 02/14/2017 21:33 NBP Sys/Trudy/Mean (mmHg): 124 (QS system process) : 84 (QS system process) : 100 (QS system process) Pulse: 59 (QS system process) Communication: RN at Bedside (Danial Mendez RN) Communication Comments: Adjusting FHR monitor (Danial Mendez RN) LaborFlag: Labor (QS system process) Datetime: 02/14/2017 21:30 Monitor Mode: External (Danial Mendez, RN) Frequency (min): 2.5-3 (Danial Mendez, RN) Quality: Moderate (Danial Andrea, RN) Duration (sec): 100-130 (Danial Andrea, RN) Resting Tone (Palpate): Relaxed (Danial Mendez, RN) Monitor Mode: External US (Danial Mendez, RN) FHR Baseline Rate : 125 (Danial Mendez, RN) Variability: Moderate 6-25 bpm (Danial Andrea, RN) Accelerations: 10X10 (Danial Andrea, RN) Patient Position/Activity: Right Lateral; Peanut Ball (Danial Andrea, RN) Datetime: 02/14/2017 21:20 NBP Sys/Trudy/Mean (mmHg): 119 (QS system process) : 71 (QS system process) : 90 (QS system process) Pulse: 58 (QS system process) LaborFlag: Labor (QS system process) Datetime: 02/14/2017 21:15 Monitor Mode: External (Danial Andrea, RN) Frequency (min): 3 (Danial Andrea, RN) Quality: Moderate (Danial Andrea, RN) Duration (sec): 100-130 (Danial Andrea, RN) Resting Tone (Palpate): Relaxed (Danial Andrea, RN) Monitor Mode: External US (Danial Andrea, RN) FHR Baseline Rate : 125 (Danial Andrea, RN) Variability: Moderate 6-25 bpm (Danial Andrea, RN) Accelerations: 10X10 (Danial Andrea, RN) Datetime: 02/14/2017 21:02 NBP Sys/Trudy/Mean (mmHg): 127 (QS system process) : 71 (QS system process) : 93 (QS system process) Pulse: 55 (QS system process) LaborFlag: Labor (QS system process) Datetime: 02/14/2017 21:01 IV/Blood Work: New IV Bag Hung (Danial Mendez RN) Patient Care Comments: LR @ 125 ml/hr (Danial Mendez RN) Datetime: 02/14/2017 21:00 Monitor Mode: External (Danial Mendez RN) Frequency (min): 3-4 (Danial Mendez RN) Quality: Moderate (Danial Mendez RN) Duration (sec): 80-120 (Danial Mendez RN) Resting Tone (Palpate): Relaxed (Danial Mendez RN) Monitor Mode: External US (Danial Mendez RN) FHR Baseline Rate : 120 (Danial Mendez RN) Variability: Moderate 6-25 bpm (Danial Mendez RN) Accelerations: 10X10 (Danial Mendez RN) Decelerations: Variable (Danial Andrea, RN) Pitocin (milliunit): Pitocin Increased to (milliunits) @ 16 (Danial Mendez, RN) Datetime: 02/14/2017 20:57 NBP Sys/Trudy/Mean (mmHg): 120 (QS system process) : 65 (QS system process) : 86 (QS system process) Pulse: 61 (QS system process) LaborFlag: Labor (QS system process) Datetime: 02/14/2017 20:53 NBP Sys/Trudy/Mean (mmHg): 125 (QS system process) : 80 (QS system process) : 98 (QS system process) Pulse: 58 (QS system process) LaborFlag: Labor (QS system process) Datetime: 02/14/2017 20:48 NBP Sys/Trudy/Mean (mmHg): 122 (QS system process) : 81 (QS system process) : 98 (QS system process) Pulse: 57 (QS system process) LaborFlag: Labor (QS system process) Datetime: 02/14/2017 20:45 Monitor Mode: External (Danial Andrea, RN) Frequency (min): 3-3.5 (Danial Andrea, RN) Quality: Moderate (Danial Andrea, RN) Duration (sec): 100-120 (Danial Andrea, RN) Resting Tone (Palpate): Relaxed (Danial Andrea, RN) Monitor Mode: External US (Danial Andrea, RN) FHR Baseline Rate : 120 (Danial Andrea, RN) Variability: Moderate 6-25 bpm (Danial Andrea, RN) Accelerations: None (Danial Andrea, RN) Decelerations: Variable (Danial Andrea, RN) Datetime: 02/14/2017 20:43 NBP Sys/Trudy/Mean (mmHg): 126 (QS system process) : 80 (QS system process) : 99 (QS system process) Pulse: 59 (QS system process) LaborFlag: Labor (QS system process) Datetime: 02/14/2017 20:40 Level of Consciousness: Fully Conscious (Danial Andrea, RN) DTR's/Clonus: No Clonus (Danial Andrae, RN) Headache: Denies (Danial Andrea, RN) Datetime: 02/14/2017 20:36 NBP Sys/Trudy/Mean (mmHg): 121 (QS system process) : 78 (QS system process) : 95 (QS system process) Pulse: 55 (QS system process) LaborFlag: Labor (QS system process) Datetime: 02/14/2017 20:30 Monitor Mode: External (Danial Mendez, RN) Frequency (min): 1.5-2 (Danial Mendez, RN) Quality: Moderate (Danial Andrea, RN) Duration (sec): 90-110 (Danial Andrea, RN) Resting Tone (Palpate): Relaxed (Danial Mendez, RN) Monitor Mode: External US (Danial Mendez, RN) FHR Baseline Rate : 120 (Danial Andrea, RN) Variability: Moderate 6-25 bpm (Danial Andrea, RN) Accelerations: 15X15 (Danial Andrea, RN) Datetime: 02/14/2017 20:27 NBP Sys/Trudy/Mean (mmHg): 122 (QS system process) : 57 (QS system process) : 82 (QS system process) Pulse: 53 (QS system process) LaborFlag: Labor (QS system process) Datetime: 02/14/2017 20:21 NBP Sys/Trudy/Mean (mmHg): 121 (QS system process) : 59 (QS system process) : 83 (QS system process) Pulse: 55 (QS system process) LaborFlag: Labor (QS system process) Datetime: 02/14/2017 20:20 NBP Sys/Trudy/Mean (mmHg): 122 (QS system process) : 59 (QS system process) : 84 (QS system process) Pulse: 55 (QS system process) LaborFlag: Labor (QS system process) Datetime: 02/14/2017 20:19 NBP Sys/Trudy/Mean (mmHg): 122 (QS system process) : 59 (QS system process) : 82 (QS system process) Pulse: 56 (QS system process) LaborFlag: Labor (QS system process) Datetime: 02/14/2017 20:18 NBP Sys/Trudy/Mean (mmHg): 124 (QS system process) : 58 (QS system process) : 83 (QS system process) Pulse: 54 (QS system process) LaborFlag: Labor (QS system process) Datetime: 02/14/2017 20:17 NBP Sys/Trudy/Mean (mmHg): 138 (QS system process) : 62 (QS system process) : 89 (QS system process) Pulse: 55 (QS system process) Dilatation (cm): 1.5 (Samantha Dong RN) Effacement (%): 100 (Samantha Dong RN) Station: 0 (Samantha Dong RN) Exam by: Oma Dong RN (Samantha Dong RN) Membrane Status: Meconium (Samantha Dong RN) Membranes Rupture Method: Spontaneous (Samantha Dong RN) Amniotic Fluid Color: Light Meconium (Samantha Dong RN) Amniotic Fluid Amount: Moderate (Samantha Dong RN) Amniotic Fluid Odor: Normal (Samantha Lattibeaudeir, RN) Vaginal Bleeding: Normal Show (Samantha Lattibeaudeir, RN) Cervix, Consistency: Soft (Samantha Lattibeaudeir, RN) Cervix, Position: Midposition (Samantha Lattibeaudeir, RN) LaborFlag: Labor (QS system process) Datetime: 02/14/2017 20:16 NBP Sys/Trudy/Mean (mmHg): 129 (QS system process) : 69 (QS system process) : 92 (QS system process) Pulse: 71 (QS system process) LaborFlag: Labor (QS system process) Datetime: 02/14/2017 20:15 NBP Sys/Trudy/Mean (mmHg): 132 (QS system process) : 70 (QS system process) : 92 (QS system process) Pulse: 57 (QS system process) Frequency (min): 2.5-3 (Danial Mendez RN) Duration (sec): 80-130 (Danial Mendez RN) Monitor Mode: External US (Danial Mendez RN) FHR Baseline Rate : 130 (Danial Mendez RN) Variability: Moderate 6-25 bpm (Danial Mendez RN) Accelerations: 15X15 (Danial Mendez RN) I/O Interventions: Shook Cath Inserted (Samantha Dong RN) LaborFlag: Labor (QS system process) Datetime: 02/14/2017 20:14 NBP Sys/Trudy/Mean (mmHg): 130 (QS system process) : 68 (QS system process) : 93 (QS system process) Pulse: 63 (QS system process) LaborFlag: Labor (QS system process) Datetime: 02/14/2017 20:13 NBP Sys/Trudy/Mean (mmHg): 126 (QS system process) : 67 (QS system process) : 91 (QS system process) Pulse: 65 (QS system process) LaborFlag: Labor (QS system process) Datetime: 02/14/2017 20:12 NBP Sys/Trudy/Mean (mmHg): 124 (QS system process) : 67 (QS system process) : 88 (QS system process) Pulse: 60 (QS system process) LaborFlag: Labor (QS system process) Datetime: 02/14/2017 20:11 NBP Sys/Trudy/Mean (mmHg): 125 (QS system process) : 65 (QS system process) : 90 (QS system process) Pulse: 57 (QS system process) LaborFlag: Labor (QS system process) Datetime: 02/14/2017 20:10 NBP Sys/Trudy/Mean (mmHg): 126 (QS system process) : 64 (QS system process) : 88 (QS system process) Pulse: 64 (QS system process) LaborFlag: Labor (QS system process) Datetime: 02/14/2017 20:09 NBP Sys/Trudy/Mean (mmHg): 128 (QS system process) : 65 (QS system process) : 90 (QS system process) Pulse: 60 (QS system process) LaborFlag: Labor (QS system process) Datetime: 02/14/2017 20:08 NBP Sys/Trudy/Mean (mmHg): 129 (QS system process) : 64 (QS system process) : 90 (QS system process) Pulse: 68 (QS system process) Temperature (F): 98.0 (Danial Mendez RN) Temperature (C): 36.7 (QS system process) LaborFlag: Labor (QS system process) Datetime: 02/14/2017 20:07 NBP Sys/Trudy/Mean (mmHg): 127 (QS system process) : 67 (QS system process) : 91 (QS system process) Pulse: 65 (QS system process) LaborFlag: Labor (QS system process) Datetime: 02/14/2017 20:06 NBP Sys/Trudy/Mean (mmHg): 124 (QS system process) : 63 (QS system process) : 87 (QS system process) Pulse: 63 (QS system process) LaborFlag: Labor (QS system process) Datetime: 02/14/2017 20:05 NBP Sys/Trudy/Mean (mmHg): 125 (QS system process) : 64 (QS system process) : 88 (QS system process) Pulse: 61 (QS system process) LaborFlag: Labor (QS system process) Datetime: 02/14/2017 20:04 NBP Sys/Trudy/Mean (mmHg): 123 (QS system process) : 63 (QS system process) : 86 (QS system process) Pulse: 64 (QS system process) LaborFlag: Labor (QS system process) Datetime: 02/14/2017 20:03 NBP Sys/Trudy/Mean (mmHg): 122 (QS system process) : 65 (QS system process) : 84 (QS system process) Pulse: 64 (QS system process) LaborFlag: Labor (QS system process) Datetime: 02/14/2017 20:02 NBP Sys/Trudy/Mean (mmHg): 125 (QS system process) : 62 (QS system process) : 87 (QS system process) Pulse: 58 (QS system process) LaborFlag: Labor (QS system process) Datetime: 02/14/2017 20:01 NBP Sys/Trudy/Mean (mmHg): 123 (QS system process) : 64 (QS system process) : 86 (QS system process) Pulse: 57 (QS system process) LaborFlag: Labor (QS system process) Datetime: 02/14/2017 20:00 NBP Sys/Trudy/Mean (mmHg): 127 (QS system process) : 63 (QS system process) : 85 (QS system process) Pulse: 63 (QS system process) LaborFlag: Labor (QS system process) Datetime: 02/14/2017 19:59 NBP Sys/Trudy/Mean (mmHg): 130 (QS system process) : 86 (QS system process) : 103 (QS system process) Pulse: 66 (QS system process) LaborFlag: Labor (QS system process) Datetime: 02/14/2017 19:57 NBP Sys/Trudy/Mean (mmHg): 145 (QS system process) : 84 (QS system process) : 108 (QS system process) Pulse: 66 (QS system process) LaborFlag: Labor (QS system process) Datetime: 02/14/2017 19:56 NBP Sys/Trudy/Mean (mmHg): 149 (QS system process) : 85 (QS system process) : 109 (QS system process) Pulse: 53 (QS system process) Epidural Procedure: Cath Placed; Loading Dose (Danial Mendez RN) LaborFlag: Labor (QS system process) Datetime: 02/14/2017 19:55 NBP Sys/Trudy/Mean (mmHg): 148 (QS system process) : 78 (QS system process) : 104 (QS system process) Pulse: 64 (QS system process) Anesthesia Plans: Epidural (Danial Mendez RN) Epidural Positioning: Sitting (Danial Mendez RN) Epidural Procedure: Test Dose (Danial Mendez RN) LaborFlag: Labor (QS system process) Datetime: 02/14/2017 19:50 Procedure Verify: Correct Patient Identity; Accurate Procedure Consent Form; Agreement on Procedure to be Done; Correct Patient Position; Relevant Images and Results are Properly Labeled and Displayed (Danial Mendez RN) Anesthesia Plans: Epidural (Danial Mendez RN) Epidural Positioning: Sitting (Danial Mendez RN) Anesthesia Comments: Dr. Espitia at bedside for epidural (Danial Mendez RN) Communication: RN at Bedside (Danial Mendez RN) Datetime: 02/14/2017 19:49 NBP Sys/Trudy/Mean (mmHg): 141 (QS system process) : 78 (QS system process) : 103 (QS system process) Pulse: 62 (QS system process) LaborFlag: Labor (QS system process) Datetime: 02/14/2017 19:45 Monitor Mode: External (Danial Mendez, RN) Frequency (min): 1.5-3 (Danial Mendez, RN) Quality: Moderate (Danial Mendez, RN) Duration (sec): 40-120 (Danial Mendez, RN) Resting Tone (Palpate): Relaxed (Danial Mendez, RN) Monitor Mode: External US (Danial Mendez, RN) FHR Baseline Rate : 120 (Danial Mendez, RN) Variability: Moderate 6-25 bpm (Danial Mendez, RN) Accelerations: 10X10 (Danial Andrea, RN) Datetime: 02/14/2017 19:30 Contraction Comments: Pt standing up at bedside, moving with contractions (Danial Mendez RN) Monitor Mode: External US (Danial Mendez RN) FHR Baseline Rate : 130 (Danial Mendez RN) Variability: Moderate 6-25 bpm (Danial Mendez RN) Accelerations: 15X15 (Dainal Mendez RN) Pain Scale: 3 (Danial Mendez RN) Pain Presence: Intermittent (Danial Mendez RN) Pain Type: Contraction (Danial Mendez RN) Pain Location: Abdomen; Back (Danial Mendez RN) Pain Goal: 1 (Danial Mendez RN) Pain Coping: Talking Through Contractions; Breathing Through Contractions (Danial Mendez RN) Level of Consciousness: Fully Conscious (Danial Mendez RN) Headache: Denies (Danial Mendez RN) Nausea/Vomiting: Denies (Danial Mendez RN) RUQ Epigastric Pain: Denies (Danial Mendez RN) Pitocin (milliunit): Pitocin Remains (milliunits) @ (Annotations: 14) (Danial Mendez RN) LaborFlag: Labor (QS system process) Datetime: 02/14/2017 19:22 Communication Comments: Report to Niru Dong RN, Dasia GRECO out. (Brittany Walton, RNC) Datetime: 02/14/2017 19:15 Monitor Mode: External; Palpation (Brittany Walton, RNC) Frequency (min): 3.5-6 (Brittany Walton, RNC) Quality: Mild/Moderate (Brittany Walton, RNC) Duration (sec): 60-120 (Brittany Walton, RNC) Duration Criteria: Less than Two 120 Second Contractions (Brittany Walton, RNC) Pattern: Normal: <= 5 Contractions in 10 Minutes (Brittany Walton, RNC) Resting Tone (Palpate): Relaxed (Brittany Walton, RNC) Monitor Mode: External US (Brittany Walton, RNC) FHR Baseline Rate : 135 (Brittany Walton, RNC) Variability: Moderate 6-25 bpm (Brittany Walton, RNC) Accelerations: 15X15 (Brittanygreg Walton, RNC) Decelerations: None (Brittany Walton, RNC) Pitocin (milliunit): Pitocin Remains (milliunits) @ 14 (Brittany Walton, RNC) Antibiotics: Penicillin IV (Units) @ 2.5 Million (Brittany Walton, RNC) Datetime: 02/14/2017 19:00 Monitor Mode: External; Palpation (FANNIE Hernandez) Frequency (min): 3-6 (FANNIE Hernandez) Quality: Moderate (FANNIE Hernandez) Duration (sec): 60-120 (FANNIE Hernandez) Duration Criteria: Less than Two 120 Second Contractions (FANNIE Hernandez) Pattern: Normal: <= 5 Contractions in 10 Minutes (FANNIE Hernandez) Resting Tone (Palpate): Relaxed (FANNIE Hernandez) Monitor Mode: External US (FANNIE Hernandez) FHR Baseline Rate : 130 (FANNIE Hernandez) Variability: Moderate 6-25 bpm (FANNIE Hernandez) Accelerations: 15X15 (FANNIE Hernandez) Decelerations: None (FANNIE Henrandez) Pitocin (milliunit): Pitocin Remains (milliunits) @ 14 (FANNIE Hernandez)
[2017-02-15 07:55] LABS: HEMATOCRIT 28.2 % (36.0-47.0); HGB HCT DIFFERENCE 0.3; MEAN CORPUSCULAR HEMOGLOBIN 29.5 pg (27.0-33.4); MEAN CORPUSCULAR HGB CONC 33.8 g/dL (32.0-36.0); MEAN CORPUSCULAR VOLUME 87 fl (80-97); RED BLOOD COUNT 3.23 10^6/uL (3.72-5.28); RED CELL DISTRIBUTION WIDTH 14.2 % (11.5-14.0); WHITE BLOOD COUNT 9.6 10^3/uL (4.0-10.5)
[2017-02-15 08:43] LABS: HEMOGLOBIN 9.5 g/dL (12.0-15.5)
[2017-02-15] MEDS: FERROUS SULFATE 325 MG TABLET PO SCH ×2 (09:47→17:05)
[2017-02-15] MEDS: SENNOSIDES/DOCUSATE 8.6-50 MG 1 EACH TABLET PO SCH (09:48)
[2017-02-15] MEDS: DOCUSATE SODIUM 100 MG CAPSULE PO SCH ×2 (09:48→17:05)
[2017-02-15] MEDS: PRENATAL VITAMIN W-O CA NO5/FE FUMARATE/FA CAPSULE PO SCH (09:49)
[2017-02-15] MEDS: FAMOTIDINE 20 MG TABLET PO SCH ×2 (09:51→21:30)
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
--- NOTE | 2017-02-15 18:01 | L&D Current Admission ---
Current Admit Datetime Report Generated by CPN: 02/15/2017 18:00 ADMISSION INFORMATION Current Admit Date/Time: 02/13/2017 18:25 (02/13/2017 18:25:Josiane Mcnamara RN) Reason for Admission: Induction of Labor (02/13/2017 18:25:Josiane Mcnamara RN) Chief Complaint: Scheduled Induction of Labor (02/13/2017 18:26:Josiane Mcnamara RN) EGA per Dates: 41.1 (02/13/2017 18:25:QS system process) Method of Arrival: Ambulatory (02/13/2017 18:25:Josiane Mcnamara RN) Admitted From: Home (02/13/2017 18:25:Josiane Mcnamara RN) Reason for Induction: Postterm (02/13/2017 18:25:Josiane Mcnamara RN) Records Available: Yes (02/13/2017 18:25:Josiane Mcnamara RN) General Admission Information: Reviewed; Updated; Confirmed (02/13/2017 18:25:Josiane Mcnamara RN) General Admission Reviewed By: Deja Mcnamara RN (02/13/2017 18:25:Josiane Mcnamara RN) BELONGINGS/ADVANCED DIRECTIVES Other Belongings: see valuable consent (02/13/2017 18:25:Josiane Mcnamara RN) Disposition of Belongings: Kept with Patient (02/13/2017 18:25:Josiane Mcnamara RN) Advance Direct for Healthcare: No, and Wants No Information (02/13/2017 18:25:Josiane Mcnamara RN) Durable Power of Thread Weaver: No (02/13/2017 18:25:Josiane Mcnamara RN) Living Will: No (02/13/2017 18:25:Josiane Mcnamara RN) Organ Donor: No (02/13/2017 18:25:Josiane Mcnamara RN) Pt Rights Information Given: Yes (02/13/2017 18:25:Josiane Mcnamara RN) Pt Understands Pt Rights: Yes (02/13/2017 18:25:Josiane Mcnamara RN) LEARNING ASSESSMENT Knowledge Level: Understands L_D Process (02/13/2017 18:25:Josiane Mcnamara RN) Barriers to Learning: None (02/13/2017 18:25:Josiane Mcnamara RN) Learning Readiness: Motivated (02/13/2017 18:25:Josiane Mcnamara RN) Learns Best By: 1 to 1 Instruction; Reading; Videos; Demonstration (02/13/2017 18:25:Samantha Dong RN) Learning Needs: Labor and Delivery Process; Pain Management; Symptoms to Report; Treatment Plan (02/13/2017 18:25:Josiane Mcnamara RN) DOMESTIC VIOLANCE SCREENING Dom Viol Threatened/Hurt: No (02/13/2017 18:25:Samantha Dong RN) Hx of Abuse/Neglect past 2yrs: No (02/13/2017 18:25:Samantha Dong RN) Feel Unsafe Going Home: No (02/13/2017 18:25:Samantha Dong RN) Addt'l Observ Indicating Abuse: No (02/13/2017 18:25:Samantha Dong RN) Reason Unable to Complete Screen: N/A, Screen Completed (02/13/2017 18:25:Samantha Dong RN) Considered Personal Harm/Suicide: No (02/13/2017 18:25:Samantha Dong RN) NUTRITIONAL/FUNCTIONAL SCREENING Problem with Appetite >5 Days: No (02/13/2017 18:25:Josiane Mcnamara RN) Chew/Swallow Difficulties: No (02/13/2017 18:25:Josiane Mcnamara RN) Inappropriate Wt Gain/Loss: No (02/13/2017 18:25:Josiane Mcnamara RN) Presence Skin Breakdown/Ulcer: No (02/13/2017 18:25:Josiane Mcnamara RN) Special Diet: No (02/13/2017 18:25:Josiane Mcnamara RN) Pt Requests Pc Maintenance Technician Visit: No (02/13/2017 18:25:Josiane Mcnamara RN) Hx of Any of the Following?: N/A (02/13/2017 18:25:Josiane Mcnamara RN) New Diagnosis of: N/A (02/13/2017 18:25:Josiane Mcnamara RN) Requires Assist w/Ambulation: No (02/13/2017 18:25:Josiane Mcnamara RN) Uses Assist Device to Ambulate: No (02/13/2017 18:25:Josiane Mcnamara RN) Pt Requires Help w/ADL's: No (02/13/2017 18:25:Josiane Mcnamara RN)
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
[2017-02-16] MEDS: IBUPROFEN 800 MG TABLET PO SCH ×2 (06:04→13:08)
--- NOTE | 2017-02-16 06:16 | L&D Care Plan ---
LD CARE PLANS Datetime Report Generated by CPN: 02/16/2017 06:15 Datetime: 02/13/2017 17:55 Pain State: Risk For (Josiane Mcnamara RN) Related To: Labor and Delivery Process; Treatment and Procedures; Post (Josiane Mcnamara RN) Goal(s): Patients Pain will be Assessed and Managed; Patient will Verbalize Adequate Relief of Pain or the Ability to [place] with Current Pain (Josiane Mcnamara RN) Interventions: Assess Pain Severity on Scale of 0 (None) to 5 (Severe); Assess Type, Location and Intensity of Pain Each Time Client Reports Discomfort and Notify Provider if Unusal Pain Develops; Encourage Proper Breathing and Relaxation Techniques; Offer Alternatives Such as Repositioning, Calm Environment, Massages, Diversional Activities, Ice Pack, Splinting, and Ambulation; Administer Analgesics as Ordered; Assist with Epidural Placement as Appropriate; Evaluate Therapeutic Effectiveness of Medication and Treatments (Josiane Mcnamara RN) Outcome: Patient will Report Absence or Relief of Pain Consistent with Established Pain Goal (Josiane Mcnamara RN) Status: Ongoing (Josiane Mcnamara RN) Outcome: Patient will have a Decrease in Signs and Symptoms of Discomfort (Josiane Mcnamara RN) Status: Ongoing (Josiane Mcnamara RN) Outcome: Pain will be Controlled During Procedures (Josiane Mcnamara RN) Status: Ongoing (Josiane Mcnamara RN) Anxiety State: Risk For (Josiane Mcnamara RN) Related To: Labor and Delivery Process; Fear of Unknown (Josiane Mcnamara RN) Goal(s): Patient will have Decreased Anxiety and be able to Function at Acceptable Levels (Josiane Mcnamara RN) Interventions: Assess Verbal and Nonverbal Behavioral Indicators of Anxiety; Assist Patient to Identify and Verbalize Symptoms of Anxiety; Identify and Demonstrate Techniques to Control Anxiety; Assist Patient with Coping Mechanisms to Manage Anxiety; Provide Theraputic Touch for the Patient; Explain to Patient, Using a Calm Reassuring Approach and Nonmedical Terms, All Activities, Procedures, and Concerns; Instruct Patient and Family about Post Discharge Care, Limitations, Symptoms to Report and Resources Available (Josiane Mcnamara RN) Outcome: Patient will Identify, Verbalize and Demonstrate Techniques to Control Anxiety (Josiane Mcnamara RN) Status: Ongoing (Josiane Mcnamara RN) Outcome: Patient's Posture, Facial Expressions, Gestures and Activity Level will Reflect Decreased Anxiety (Josiane Mcnamara RN) Status: Ongoing (Josiane Mcnamara RN) Outcome: Patient will Verbalize a Sense of Control and/or Acceptance of the Situation (Josiane Mcnamara RN) Status: Ongoing (Josiane Mcnamara RN) Outcome: Patient will Identify and Utilize Support Person (Josiane Mcnamara RN) Status: Ongoing (Josiane Mcnamara RN) Knowledge Deficit State: Risk For (Josiane Mcnamara RN) Related To: Labor and Delivery Process; Treatment and Procedures; Impending Alterations in Family Dynamics; Feeding and Infant Care (Josiane Mcnamara RN) Goal(s): Patient will Accurately Verbalize Understanding of Plan of Care and Treatment; Patient and Family will Accurately Verbalize Understanding of the Disease Process (Josiane Mcnamara RN) Interventions: Assess Motivation and Willingness of Patient/Family to Learn; Assess Preferred Learning Mode: One to One Instruction, Reading, Videos, Group Discussion or Demonstration; Assess Barriers to Learning: Pain, Emotional State, Language Barrier, Cognitive Impairment, Visual or Hearing Deficits; Assess Patient and Family Knowledge of Disease Process, Medications and Treatment; Discuss Therapy and/or Treatment Options, Describe Rationale Behind Management, Therapy and Treatment Recommendations; Instruct Patient and Family on Signs and Symptoms to Report; Instruct Patient and Family on Medication Effects and Side Effects; Provide Appropriate and Timely Education Using Multiple Techniques; Provide Patient and Family with Support Group Information and Resources; Give Clear and Thorough Explanations and Demonstrations (Josiane Mcnamara RN) Outcome: Patient and Family will Verbalize Understanding of Condition, Treatment and Signs and Symptoms to Report (Josiane Mcnamara RN) Status: Ongoing (Josiane Mcnamara RN) Outcome: Patient will Identify Perceived Learning Needs and Express Motivation to Learn (Josiane Mcnamara RN) Status: Ongoing (Josiane Mcnamara RN) Outcome: Patient will Verbalize Understanding of Desired Content, and/or Performs Desired Skill Prior to Discharge (Josiane Mcnamara RN) Status: Ongoing (Josiane Mcnamara RN) Infection State: Risk For (Josiane Mcnamara RN) Related To: Prolonged Labor or Induction (Josiane Mcnamara RN) Goal(s): The Patient will be Free of Infection, Vital Signs Stable and Lab Work within Normal Parameters (Josiane Mcnamara RN) Interventions: Instruct and Reinforce Proper Handwashing, Hygiene, and Care Techniques to Patient and Family; Monitor Vital Signs; Monitor Patient for the Following Signs of Infection: Fever, Abdominal Tenderness, Unusual Discharge; Monitor Aminiotic Fluid, Urine and Lochia for Color and Odor; Observe Wounds, Incisions and Invasive Line Sites for Redness, Drainage and Edema; Assess IV Sites per Hospital Policy; Monitor Lab and Test Results and Notify Provider of Abnormal Findings; Assess Nutritional Status and Promote Good Nutrition (Josiane Mcnamara RN) Outcome: Patient will Remain Free of Infection (Josiane Mcnamara RN) Status: Ongoing (Josiane Mcnamara RN) Outcome: Infection will be Recognized Early to Allow for Prompt Treatment (Josiane Mcnamara RN) Status: Ongoing (Josiane Mcnamara RN) Outcome: Patient will have Vital Signs Within Expected Range (Josiane Mcnamara RN) Status: Ongoing (Josiane Mcnamara RN) Injury State: Risk For (Josiane Mcnamara RN) Related To: Labor and Delivery Process; Anesthesia (Josiane Mcnamara RN) Interventions: Monitoring as per Hospital Protocol; Assess Neurological Status; Perform Risk Assessment of Patients with Induction and ; Perform Fall Risk Assessment and Prevention per Hospital Protocol; Perform DVT Risk Assessment and Prophylaxis per Hospital Protocol; Ensure that Oxygen, Suction, and Resuscitation Medications and Equipment are Readily Available; Confirm Patient ID Prior to Procedure(s) and Medication Administration per Hospital Policy (Josiane Mcnamara RN) Outcome: Successful Fall Risk Prevention (Josiane Mcnamara RN) Status: Ongoing (Josiane Mcnamara RN) Outcome: Patient will Deliver Infant without Adverse Sequela (Josiane Mcnamara RN) Status: Ongoing (Josiane Mcnamara RN) Outcome: Patient's Neurological Status will Remain Stable (Josiane Mcnamara RN) Status: Ongoing (Josiane Mcnamara RN)
[2017-02-16 09:07] VITALS: BP 121/76
[2017-02-16] MEDS: FAMOTIDINE 20 MG TABLET PO SCH (10:18)
[2017-02-16] MEDS: DOCUSATE SODIUM 100 MG CAPSULE PO SCH ×2 (10:18→17:39)
[2017-02-16] MEDS: SENNOSIDES/DOCUSATE 8.6-50 MG 1 EACH TABLET PO SCH (10:18)
[2017-02-16] MEDS: PRENATAL VITAMIN W-O CA NO5/FE FUMARATE/FA CAPSULE PO SCH (10:18)
[2017-02-16] MEDS: FERROUS SULFATE 325 MG TABLET PO SCH ×2 (10:18→17:39)
--- NOTE | 2017-02-16 13:48 | PDOC DISCHARGE SUMMARY ---
Final Diagnosis Discharge Date: 02/16/17 - Final Diagnosis (1) Anemia due to acute blood loss Is this a current diagnosis for this admission?: Yes (2) Anxiety Is this a current diagnosis for this admission?: Yes (4) Hx of maternal laceration, 4th degree, currently Is this a current diagnosis for this admission?: Yes Discharge Data - Discharge Medication Home Medications: Vit/Iron Fumarate/FA [ Tablet] 1 tab PO DAILY 02/13/17 Sertraline HCl [Zoloft 50 mg Tablet] 1 tab PO DAILY 02/13/17 Reason(s) for Admission: Induction of Labor Intrapartum Procedure(s): Spontaneous Vaginal Delivery Complication(s): Laceration-Vaginal Laceration-Degree: 4th - Diagnosis Test Laboratory: Temp Pulse Resp BP Pulse Ox 98.1 F 60 16 121/76 100 02/16/17 09:35 02/16/17 09:35 02/16/17 09:35 02/16/17 09:32 02/16/17 09:35 02/13/17 02/15/17 18:23 07:21 RBC 4.35 3.23 L Hgb 12.8 9.5 L D Hct 37.6 28.2 L - Discharge information/Instructions Discharge Activity: Activity As Tolerated, No Lifting Over 10 Pounds, Pelvic Rest, No tub bath Discharge Diet: Regular Disposition: HOME, SELF-CARE Follow up with: [facility] in: 1 - follow up for eval perineum after 4 th degree laceration
--- NOTE | 2017-02-16 13:56 | PDOC PROGRESS REPORT ---
Subjective-OB Subjective: Post Delivery Day: 32 year old. Denies any needs at this time pt doing well p 4th degree laceration intact and well approximated ff@u-2 mild lochia pt ambulating well denies bowel movement at this time anemic recommend increasing fiber start iron rich diet hold off on iron until evaluated in 1 week at office learning verbalized Physical Exam (OB) Vital Signs: Temp Pulse Resp BP Pulse Ox 98.1 F 60 16 121/76 100 02/16/17 09:35 02/16/17 09:35 02/16/17 09:35 02/16/17 09:32 02/16/17 09:35 Intake & Output 02/15/17 02/16/17 02/17/17 06:59 06:59 06:59 Output Total 1400 Balance -1400 - Lochia Lochia Amount: Scant < 10 ml Lochia Color: Rubra/Red - Abdomen Description: Soft, Round Hernia Present: No Fundal Description: Firm, Midline Describe if Not Midline: located in RUQ Fundal Height: u/u - u/2 Objective-Diagnostic Laboratory: 02/15/17 07:21 Assessment and Plan(PN) - Assessment and Plan (1) Anemia due to acute blood loss Is this a current diagnosis for this admission?: Yes (2) Anxiety Is this a current diagnosis for this admission?: Yes (3) Normal vaginal delivery Is this a current diagnosis for this admission?: Yes (4) Hx of maternal laceration, 4th degree, currently Qualifiers: Trimester: third trimester Qualified Code(s): O09.293 - Supervision of with other poor reproductive or obstetric history, third trimester Is this a current diagnosis for this admission?: Yes - Time Spent with Patient Medications reviewed and adjusted accordingly: Yes - Disposition Anticipated Discharge: Home
[2017-02-16] MEDS ORDERED: MEASLES,MUMPS&RUBELLA VACC/PF 0.5 ML VIAL SUBCUT ONE (14:30)
== END 2017-02-16 20:53 | disposition home or self-care (01) | DRG 775 ==
LOC: LR 17:53 → 2S 02-15 01:38
PROVIDERS: ADMIT Specialist; ATTEND Obstetrics & Gynecology
PROC: 3E0P7GC Introduction of Other Therapeutic Substance into Female Reproductive, Via Natural or Artificial Opening (ICD-10-PCS; 2017-02-13)
PROC: 10E0XZZ Delivery of Products of Conception, External Approach (ICD-10-PCS; principal; 2017-02-14)
PROC: 0DQP0ZZ Repair Rectum, Open Approach (ICD-10-PCS; 2017-02-14)
PROC: 3E0234Z Introduction of Serum, Toxoid and Vaccine into Muscle, Percutaneous Approach (ICD-10-PCS; 2017-02-16)
DX: O48.0 Post-term pregnancy (principal); O70.3 Fourth degree perineal laceration during delivery; D62 Acute posthemorrhagic anemia; O99.824 Streptococcus B carrier state complicating childbirth; O77.0 Labor and delivery complicated by meconium in amniotic fluid; O99.344 Other mental disorders complicating childbirth; O69.81X0 Labor and delivery complicated by cord around neck, without compression, not applicable or unspecified; O99.02 Anemia complicating childbirth; Z3A.41 41 weeks gestation of pregnancy; Z37.0 Single live birth; F41.9 Anxiety disorder, unspecified; Z62.810 Personal history of physical and sexual abuse in childhood; Z23 Encounter for immunization
CPT/HCPCS: 36415; 85025; 85027; 86592; 86850; 86900; 86901; 90707; J2370; J2540; J2590; J3010; J3490